=== PATIENT | male | born 1930 | race Caucasian/White ===

== ENCOUNTER 2018-06-29 14:17 | Inpatient (IN) | payer MEDICARE, OTHER ==
[2018-06-29 15:36] LABS: ABNORMAL IP MESSAGE 1; HEMATOCRIT 23.4 % (42.0-52.0); HEMOGLOBIN 7.4 g/dl (14.0-18.0); MEAN CORPUSCULAR HEMOGLOBIN 30.7 pg (29.0-33.0); MEAN CORPUSCULAR HGB CONC 31.6 g/dl (32.0-37.0); MEAN CORPUSCULAR VOLUME 97.1 fl (82.0-101.0); MEAN PLATELET VOLUME 8.9 fl (7.4-10.4); PLATELET COUNT 117 10^3/UL (140-415); POSITIVE DIFF @See below; RED BLOOD COUNT 2.41 10^6/ul (4.70-6.10); RED CELL DISTRIBUTION WIDTH 14.7 % (11.5-14.5)
[2018-06-29 15:36] LABS: WHITE BLOOD COUNT 3.2 10^3/ul (4.8-10.8)
[2018-06-29 15:45] LABS: ADD MAN DIFF? YES
[2018-06-29 15:52] LABS: PROTIME 24.1 Sec (11.9-14.9); PT RATIO 1.9
[2018-06-29 15:53] LABS: PARTIAL THROMBOPLASTIN TIME 50.4 Sec (23.0-35.0)
[2018-06-29 15:57] LABS: ALANINE AMINOTRANSFERASE 10 IU/L (13-69); ALBUMIN 4.7 g/dl (3.3-4.9); ALBUMIN/GLOBULIN RATIO 1.88; ALKALINE PHOSPHATASE 76 IU/L (42-121); ANION GAP 13 (5-13); ASPARTATE AMINO TRANSFERASE 19 IU/L (15-46); BILIRUBIN,INDIRECT 0.1 mg/dl (0-1.1); BILIRUBIN,TOTAL 0.1 mg/dl (0.2-1.3); BLOOD UREA NITROGEN 31 mg/dl (7-20); CALCIUM 9.5 mg/dl (8.4-10.2); CARBON DIOXIDE 23 mmol/L (21-31); CHLORIDE 108 mmol/L (97-110); CREATININE 1.85 mg/dl (0.61-1.24); GLUCOSE 117 mg/dl (70-220); SODIUM 144 mmol/L (135-144); TOTAL PROTEIN 7.2 g/dl (6.1-8.1)
[2018-06-29 16:03] LABS: POTASSIUM 6.7 mmol/L (3.5-5.1)
[2018-06-29 16:06] LABS: DIGOXIN 2.4 ng/ml (1.0-2.0)
[2018-06-29 16:08] LABS: B-TYPE NATRIURETIC PEPTIDE 1330 PG/ML (0-450); TROPONIN-I 0.018 ng/ml (0.000-0.120)
[2018-06-29] MEDS: CA CHLORIDE 10% 10 ML SYRINGE IV (16:23)
[2018-06-29] MEDS: PANTOPRAZOLE 40 MG INJ IV (16:23)
[2018-06-29] MEDS: DEXTROSE 50% 50 ML SYRINGE IV (16:24)
[2018-06-29] MEDS: ALBUTEROL 0.5% (NEB) 2.5 MG/0.5 ML AMP INH (16:26)
[2018-06-29] MEDS: INSULIN REGULAR, HUMAN 100 UNIT/1 ML 3ML VIAL IVP (16:34)
[2018-06-29 16:55] LABS: ANISOCYTOSIS 1+ (0-0); BAND NEUTROPHILS % (M) 2 % (0-4); EOSINOPHILS % (M) 3 % (0-7); HYPOCHROMASIA 2+ (0-0); LYMPHOCYTES #M 0.3 10^3/ul (0.8-2.9); LYMPHOCYTES % (M) 10 % (15-51); MONOCYTE #M 0.2 10^3/ul (0.3-0.9); MONOCYTES % (M) 8 % (0-11); OVALOCYTES 1+ (0-0); POIKILOCYTOSIS 1+ (0-0); POLYCHROMASIA 1+ (0-0); SCHISTOCYTES 1+ (0-0); SEG NEUT #M 2.5 10^3/ul (1.6-7.5); SEGMENTED NEUTROPHILS (M) % 77 % (39-77)
[2018-06-29 17:07] LABS: ADD UMIC YES; UR ASCORBIC ACID NEGATIVE (NEGATIVE); UR BACTERIA FEW /HPF (NONE SEEN); UR BILIRUBIN (Dip) NEGATIVE (NEGATIVE); UR BLOOD (Dip) NEGATIVE (NEGATIVE); UR CLARITY CLEAR (CLEAR); UR COLOR YELLOW (YELLOW); UR GLUCOSE (Dip) NEGATIVE (NEGATIVE); UR KETONES (Dip) NEGATIVE (NEGATIVE); UR LEUKOCYTE ESTERASE (Dip) NEGATIVE Leu/ul (NEGATIVE); UR NITRITE (Dip) NEGATIVE (NEGATIVE); UR RBC 1 /HPF (0-5); UR TOTAL PROTEIN (Dip) 1+ mg/dl (NEGATIVE); UR UROBILINOGEN (Dip) NEGATIVE (NEGATIVE); UR WBC 1 /HPF (0-5)
[2018-06-29] MEDS: IPRATROPIUM (NEB) 0.5 MG/2.5 ML AMP HHN ×2 (18:00→22:45)
[2018-06-29 20:19] LABS: HAAIG REFLEX REFLEX FILED
[2018-06-29 20:42] LABS: HEMATOCRIT 22.7 % (42.0-52.0); HEMOGLOBIN 7.2 g/dl (14.0-18.0); IRON 44 ug/dl (35-150)
[2018-06-29 20:43] LABS: LIPASE 58 U/L (23-300)
[2018-06-29 20:43] LABS: AMYLASE 61 U/L (11-123)
[2018-06-29 20:51] LABS: % IRON SATURATION 12 % SAT (22-52); TOTAL IRON BINDING CAPACITY 358 ug/dl (241-421)
[2018-06-29] MEDS: FAMOTIDINE 20 MG TAB PO (20:54)
[2018-06-29 21:01] LABS: ANION GAP 9 (5-13); BLOOD UREA NITROGEN 30 mg/dl (7-20); CALCIUM 10.3 mg/dl (8.4-10.2); CARBON DIOXIDE 23 mmol/L (21-31); CHLORIDE 110 mmol/L (97-110); CREATINE KINASE 34 IU/L (23-200); CREATININE 1.81 mg/dl (0.61-1.24); GLUCOSE 120 mg/dl (70-220); SODIUM 142 mmol/L (135-144)
[2018-06-29 21:13] LABS: CK INDEX 4.1; HEPATITIS B SURFACE ANTIGEN NEGATIVE (NEGATIVE)
[2018-06-29 21:14] LABS: POTASSIUM 6.8 mmol/L (3.5-5.1)
[2018-06-29 21:31] LABS: HEPATITIS B CORE ANTIBODY REACTIVE (NEGATIVE)
[2018-06-29 21:33] LABS: HEPATITIS C VIRAL ANTIBODY NEGATIVE (NEGATIVE)
[2018-06-29] MEDS: SOD CHLORIDE 0.9% 1,000 ML IV (22:12)
[2018-06-29 22:30] LABS: CARCINOEMBRYONIC ANTIGEN 0.4 ng/ml (0.0-5.0)
[2018-06-29] MEDS: FOLIC ACID 1 MG TAB PO (23:09)
[2018-06-29] MEDS: AMLODIPINE 5 MG TAB PO (23:09)
[2018-06-29] MEDS: FUROSEMIDE 40 MG INJ IV (23:10)
[2018-06-29] MEDS: NA BICARBONATE 8.4% 50 ML SYG IV (23:11)
[2018-06-29] MEDS: NA POLYST SULFON 15 GM/60 ML BTL PO (23:12)
[2018-06-30] MEDS: CALCIUM CARBONATE 1.25 GM TAB PO ×3 (00:08→20:24)
[2018-06-30] MEDS: RANOLAZINE (SR) 500 MG TAB PO ×3 (00:09→20:25)
[2018-06-30] MEDS: METOPROLOL (XL) 100 MG TAB PO ×2 (00:09→08:56)
[2018-06-30] MEDS: SOD CHLORIDE 0.9% 1,000 ML IV ×4 (02:41→18:29)
[2018-06-30 03:05] LABS: POTASSIUM 6.2 mmol/L (3.5-5.1)
[2018-06-30 05:08] LABS: ADD MAN DIFF? NO
[2018-06-30 05:11] LABS: WHITE BLOOD COUNT 4.1 10^3/ul (4.8-10.8)
[2018-06-30 05:11] LABS: ABNORMAL IP MESSAGE 1; BASOPHILS % 0.5 % (0.0-2.0); EOSINOPHILS % 0.7 % (0.0-7.0); HEMATOCRIT 21.9 % (42.0-52.0); LYMPHOCYTES # 0.4 10^3/ul (0.8-2.9); LYMPHOCYTES % 8.9 % (15.0-51.0); MEAN CORPUSCULAR HEMOGLOBIN 30.7 pg (29.0-33.0); MEAN CORPUSCULAR VOLUME 96.1 fl (82.0-101.0); MEAN PLATELET VOLUME 9.9 fl (7.4-10.4); MONOCYTE # 0.7 10^3/ul (0.3-0.9); MONOCYTES % 16.3 % (0.0-11.0); NEUTROPHILS % 72.9 % (39.0-77.0); PLATELET COUNT 121 10^3/UL (140-415); POSITIVE DIFF @See below; RED BLOOD COUNT 2.28 10^6/ul (4.70-6.10); RED CELL DISTRIBUTION WIDTH 14.8 % (11.5-14.5)
[2018-06-30] MEDS ORDERED: SODIUM BICARBONATE (IV ADD) 100 MEQ in DEXTROSE 5% 900 ML IV (05:30)
[2018-06-30 05:42] LABS: ANION GAP 12 (5-13); BLOOD UREA NITROGEN 29 mg/dl (7-20); CALCIUM 9.9 mg/dl (8.4-10.2); CARBON DIOXIDE 26 mmol/L (21-31); CHLORIDE 106 mmol/L (97-110); CREATININE 1.79 mg/dl (0.61-1.24); GLUCOSE 106 mg/dl (70-220); MAGNESIUM 1.4 mg/dl (1.7-2.5); SODIUM 144 mmol/L (135-144)
[2018-06-30 06:07] LABS: POTASSIUM 6.5 mmol/L (3.5-5.1)
[2018-06-30] MEDS: NA BICARBONATE 8.4% 50 ML SYG IV (06:24)
[2018-06-30] MEDS: LACTULOSE 30ML CUP PO (06:25)
[2018-06-30] MEDS: NA POLYST SULFON 15 GM/60 ML BTL PO (06:25)
[2018-06-30] MEDS: MAGNESIUM SULFATE 1 GM/D5W 100 ML IVPB (07:30)
[2018-06-30 07:53] LABS: SODIUM,URINE RANDOM 134 mmol/L (30-90)
[2018-06-30 08:10] LABS: IMMEDIATE SPIN CROSSMATCH 1 2
[2018-06-30] MEDS: AMLODIPINE 5 MG TAB PO (08:55)
[2018-06-30] MEDS: FOLIC ACID 1 MG TAB PO (08:56)
[2018-06-30] MEDS: PANTOPRAZOLE (EC) 40 MG TAB PO ×2 (08:56→18:29)
[2018-06-30] MEDS: FAMOTIDINE 20 MG TAB PO (08:56)
[2018-06-30] MEDS: IPRATROPIUM (NEB) 0.5 MG/2.5 ML AMP HHN ×2 (09:00→13:00)
[2018-06-30 09:09] LABS: ANION GAP 13 (5-13); BLOOD UREA NITROGEN 28 mg/dl (7-20); CALCIUM 9.7 mg/dl (8.4-10.2); CARBON DIOXIDE 26 mmol/L (21-31); CHLORIDE 106 mmol/L (97-110); CREATININE 1.81 mg/dl (0.61-1.24); GLUCOSE 115 mg/dl (70-220); POTASSIUM 5.8 mmol/L (3.5-5.1); SODIUM 145 mmol/L (135-144)
[2018-06-30] MEDS: LACTULOSE 30ML CUP GTB (09:10)
[2018-06-30 14:07] LABS: CREATININE,URINE RANDOM 32.99 mg/dl (20-370); PROTEIN/CREAT RATIO 0.72 RATIO
[2018-06-30 16:42] LABS: ADD MAN DIFF? NO
[2018-06-30 16:44] LABS: ABNORMAL IP MESSAGE 1; BASOPHILS % 0.2 % (0.0-2.0); EOSINOPHILS % 0.6 % (0.0-7.0); HEMATOCRIT 29.7 % (42.0-52.0); HEMOGLOBIN 9.8 g/dl (14.0-18.0); LYMPHOCYTES # 0.4 10^3/ul (0.8-2.9); LYMPHOCYTES % 8.4 % (15.0-51.0); MEAN CORPUSCULAR HEMOGLOBIN 30.7 pg (29.0-33.0); MEAN CORPUSCULAR VOLUME 93.1 fl (82.0-101.0); MEAN PLATELET VOLUME 9.4 fl (7.4-10.4); MONOCYTE # 0.7 10^3/ul (0.3-0.9); MONOCYTES % 14.8 % (0.0-11.0); NEUTROPHIL # 3.7 10^3/ul (1.6-7.5); NEUTROPHILS % 75.2 % (39.0-77.0); PLATELET COUNT 144 10^3/UL (140-415); POSITIVE DIFF @See below; RED BLOOD COUNT 3.19 10^6/ul (4.70-6.10); RED CELL DISTRIBUTION WIDTH 14.9 % (11.5-14.5)
[2018-06-30 16:44] LABS: WHITE BLOOD COUNT 4.9 10^3/ul (4.8-10.8)
[2018-06-30 17:01] LABS: ANION GAP 11 (5-13); BLOOD UREA NITROGEN 25 mg/dl (7-20); CARBON DIOXIDE 28 mmol/L (21-31); CHLORIDE 105 mmol/L (97-110); CREATININE 1.78 mg/dl (0.61-1.24); GLUCOSE 113 mg/dl (70-220); POTASSIUM 5.8 mmol/L (3.5-5.1); SODIUM 144 mmol/L (135-144)
[2018-06-30 17:19] LABS: OCCULT BLOOD STOOL NEGATIVE (NEGATIVE)
[2018-06-30 17:33] LABS: RETICULOCYTE RBC 3.14
[2018-06-30 17:33] LABS: RETICULOCYTE COUNT # 0.049 X10^6 (0.020-0.110); RETICULOCYTE COUNT % 1.6 % (0.5-1.5)
[2018-06-30 18:16] LABS: FERRITIN 66.8 ng/ml (11.1-264.0)
[2018-06-30 18:46] LABS: CARCINOEMBRYONIC ANTIGEN 0.3 ng/ml (0.0-5.0)
[2018-06-30 18:48] LABS: FOLATE > 20.0 ng/ml (2.8-20.0)
[2018-06-30 20:15] LABS: ADD MAN DIFF? NO
[2018-06-30 20:16] LABS: ABNORMAL IP MESSAGE 1; BASOPHILS % 0.4 % (0.0-2.0); EOSINOPHILS % 0.8 % (0.0-7.0); HEMOGLOBIN 9.9 g/dl (14.0-18.0); LYMPHOCYTES # 0.4 10^3/ul (0.8-2.9); LYMPHOCYTES % 7.2 % (15.0-51.0); MEAN CORPUSCULAR HEMOGLOBIN 30.8 pg (29.0-33.0); MEAN CORPUSCULAR VOLUME 93.5 fl (82.0-101.0); MEAN PLATELET VOLUME 8.7 fl (7.4-10.4); MONOCYTE # 0.8 10^3/ul (0.3-0.9); NEUTROPHIL # 3.6 10^3/ul (1.6-7.5); PLATELET COUNT 133 10^3/UL (140-415); POSITIVE DIFF @See below; RED BLOOD COUNT 3.21 10^6/ul (4.70-6.10); RED CELL DISTRIBUTION WIDTH 15.1 % (11.5-14.5)
[2018-06-30 20:16] LABS: WHITE BLOOD COUNT 4.8 10^3/ul (4.8-10.8)
[2018-06-30] MEDS: ATORVASTATIN 10 MG TAB PO (20:25)
[2018-06-30 20:34] LABS: ALANINE AMINOTRANSFERASE 11 IU/L (13-69); ALBUMIN 4.6 g/dl (3.3-4.9); ALBUMIN/GLOBULIN RATIO 1.84; ALKALINE PHOSPHATASE 86 IU/L (42-121); ANION GAP 15 (5-13); ASPARTATE AMINO TRANSFERASE 23 IU/L (15-46); BILIRUBIN,INDIRECT 0.9 mg/dl (0-1.1); BILIRUBIN,TOTAL 0.9 mg/dl (0.2-1.3); BLOOD UREA NITROGEN 24 mg/dl (7-20); CALCIUM 9.7 mg/dl (8.4-10.2); CARBON DIOXIDE 27 mmol/L (21-31); CHLORIDE 105 mmol/L (97-110); CREATININE 1.78 mg/dl (0.61-1.24); GLUCOSE 129 mg/dl (70-220); POTASSIUM 5.5 mmol/L (3.5-5.1); SODIUM 147 mmol/L (135-144); TOTAL PROTEIN 7.1 g/dl (6.1-8.1)
[2018-06-30] MEDS ORDERED: METOPROLOL (XL) 50 MG TAB PO (21:00)
[2018-07-01] MEDS: PANTOPRAZOLE (EC) 40 MG TAB PO (05:19)
[2018-07-01 06:10] LABS: ADD MAN DIFF? NO
[2018-07-01 06:19] LABS: ABNORMAL IP MESSAGE 1; BASOPHILS % 0.4 % (0.0-2.0); EOSINOPHILS % 0.9 % (0.0-7.0); HEMATOCRIT 27.9 % (42.0-52.0); LYMPHOCYTES # 0.4 10^3/ul (0.8-2.9); LYMPHOCYTES % 9.5 % (15.0-51.0); MEAN CORPUSCULAR HEMOGLOBIN 30.2 pg (29.0-33.0); MEAN CORPUSCULAR HGB CONC 32.3 g/dl (32.0-37.0); MEAN CORPUSCULAR VOLUME 93.6 fl (82.0-101.0); MEAN PLATELET VOLUME 9.5 fl (7.4-10.4); MONOCYTE # 0.9 10^3/ul (0.3-0.9); MONOCYTES % 19.9 % (0.0-11.0); NEUTROPHIL # 3.2 10^3/ul (1.6-7.5); NEUTROPHILS % 68.9 % (39.0-77.0); PLATELET COUNT 124 10^3/UL (140-415); POSITIVE DIFF @See below; RED BLOOD COUNT 2.98 10^6/ul (4.70-6.10)
[2018-07-01 06:19] LABS: WHITE BLOOD COUNT 4.6 10^3/ul (4.8-10.8)
[2018-07-01 06:41] LABS: ANION GAP 11 (5-13); BLOOD UREA NITROGEN 24 mg/dl (7-20); CALCIUM 9.5 mg/dl (8.4-10.2); CARBON DIOXIDE 30 mmol/L (21-31); CHLORIDE 105 mmol/L (97-110); CREATININE 1.76 mg/dl (0.61-1.24); GLUCOSE 94 mg/dl (70-220); MAGNESIUM 1.5 mg/dl (1.7-2.5); PHOSPHORUS 4.2 mg/dl (2.5-4.9); POTASSIUM 5.1 mmol/L (3.5-5.1); SODIUM 146 mmol/L (135-144)
[2018-07-01] MEDS: SOD CHLORIDE 0.9% 1,000 ML IV (07:00)
[2018-07-01] MEDS: RANOLAZINE (SR) 500 MG TAB PO (07:58)
[2018-07-01] MEDS: CALCIUM CARBONATE 1.25 GM TAB PO (07:58)
[2018-07-01] MEDS: FAMOTIDINE 20 MG TAB PO (07:58)
[2018-07-01] MEDS: FOLIC ACID 1 MG TAB PO (07:58)
[2018-07-01] MEDS: AMLODIPINE 5 MG TAB PO (07:59)
[2018-07-01 09:22] LABS: DIGOXIN 1.5 ng/ml (1.0-2.0)
[2018-07-01] MEDS ORDERED: DEXTROSE 5%-0.225% NACL 1,000 ML IV (11:00)
[2018-07-01] MEDS: MAGNESIUM SULFATE 2 GM/50 ML 50 ML IVPB (11:04)
== END 2018-07-01 15:31 | disposition home health service (06) | DRG 683 ==
LOC: E/R 14:17 → 6WM 06-30 19:46 → ICU 19:45
PROVIDERS: Family Medicine
PROC: 30233N1 Transfusion of Nonautologous Red Blood Cells into Peripheral Vein, Percutaneous Approach (ICD-10-PCS; principal; 2018-06-30)
DX: N17.9 Acute kidney failure, unspecified (principal); K92.1 Melena; D68.9 Coagulation defect, unspecified; I48.91 Unspecified atrial fibrillation; I25.10 Atherosclerotic heart disease of native coronary artery without angina pectoris; I12.9 Hypertensive chronic kidney disease with stage 1 through stage 4 chronic kidney disease, or unspecified chronic kidney disease; N18.9 Chronic kidney disease, unspecified; R14.0 Abdominal distension (gaseous); M81.0 Age-related osteoporosis without current pathological fracture; M15.9 Polyosteoarthritis, unspecified; N40.0 Benign prostatic hyperplasia without lower urinary tract symptoms; E78.00 Pure hypercholesterolemia, unspecified; J44.9 Chronic obstructive pulmonary disease, unspecified; H91.90 Unspecified hearing loss, unspecified ear; D63.1 Anemia in chronic kidney disease; R33.9 Retention of urine, unspecified; E11.22 Type 2 diabetes mellitus with diabetic chronic kidney disease; K80.80 Other cholelithiasis without obstruction; N28.1 Cyst of kidney, acquired; Z79.01 Long term (current) use of anticoagulants; T46.0X5A Adverse effect of cardiac-stimulant glycosides and drugs of similar action, initial encounter; T50.0X5A Adverse effect of mineralocorticoids and their antagonists, initial encounter; E83.42 Hypomagnesemia; D50.0 Iron deficiency anemia secondary to blood loss (chronic); I51.7 Cardiomegaly
CPT/HCPCS: 36415; 36430; 71045; 76700; 80048; 80053; 80162; 81001; 81003; 82150; 82270; 82378; 82550; 82553; 82570; 82607; 82728; 82746; 82962; 83540; 83690; 83735; 83880; 84100; 84132; 84300; 84443; 84484; 85014; 85018; 85025; 85045; 85610; 85730; 86704; 86709; 86803; 86850; 86860; 86870; 86880; 86900; 86901; 86902; 86906; 86920; 86970; 86971; 87081; 87340; 93005; 93306; 94664; 96374; 96375; 99291-25

== ENCOUNTER 2018-07-06 21:14 | Emergency (ER) | payer MEDICARE, OTHER ==
[2018-07-06] MEDS: OXYMETAZOLINE 0.05% 15 ML NAS SPRAY NASAL (21:54)
[2018-07-06] MEDS: SILVER NITRATE SWAB TOP (22:47)
== END 2018-07-06 23:02 | disposition home or self-care (01) ==
LOC: E/R 23:02
DX: R04.0 Epistaxis (principal); I10 Essential (primary) hypertension; I25.10 Atherosclerotic heart disease of native coronary artery without angina pectoris; Z79.01 Long term (current) use of anticoagulants
CPT/HCPCS: 99282

== ENCOUNTER 2018-08-27 15:42 | Inpatient (IN) | payer MEDICARE, OTHER ==
[~2018-08-27 15:42] MED LIST: NORepinephrine 8MG/250 ML BAG; PROPOFOL 200 MG INJ
[2018-08-27 16:13] LABS: ABNORMAL IP MESSAGE 1; HEMATOCRIT 23.4 % (42.0-52.0); HEMOGLOBIN 7.1 g/dl (14.0-18.0); MEAN CORPUSCULAR HEMOGLOBIN 30.7 pg (29.0-33.0); MEAN CORPUSCULAR HGB CONC 30.3 g/dl (32.0-37.0); MEAN CORPUSCULAR VOLUME 101.3 fl (82.0-101.0); NUCLEATED RED BLOOD CELLS% 0.1 /100WBC (0.0-0.0); PLATELET COUNT 153 10^3/UL (140-415); POSITIVE DIFF @See below; RED BLOOD COUNT 2.31 10^6/ul (4.70-6.10); RED CELL DISTRIBUTION WIDTH 14.7 % (11.5-14.5)
[2018-08-27 16:13] LABS: WHITE BLOOD COUNT 13.4 10^3/ul (4.8-10.8)
[2018-08-27 16:14] LABS: ADD MAN DIFF? YES
[2018-08-27] MEDS: NORepinephrine 8MG/250 ML (PMX 250 ML IV ×2 (16:24→23:57)
[2018-08-27] MEDS: SOD CHLORIDE 0.9% 1,000 ML IV (16:25)
[2018-08-27] MEDS: SODIUM CHLORIDE 0.9% 500 ML BAG IV* (16:25)
[2018-08-27 16:33] LABS: INR 1.49; PROTIME 18.1 Sec (11.9-14.9); PT RATIO 1.4
[2018-08-27 16:34] LABS: ALANINE AMINOTRANSFERASE 16 IU/L (13-69); ALBUMIN 3.3 g/dl (3.3-4.9); ALBUMIN/GLOBULIN RATIO 1.43; ALKALINE PHOSPHATASE 91 IU/L (42-121); ANION GAP 12 (5-13); ASPARTATE AMINO TRANSFERASE 30 IU/L (15-46); BLOOD UREA NITROGEN 31 mg/dl (7-20); CALCIUM 7.9 mg/dl (8.4-10.2); CARBON DIOXIDE 18 mmol/L (21-31); CHLORIDE 108 mmol/L (97-110); CREATININE 1.98 mg/dl (0.61-1.24); GLUCOSE 231 mg/dl (70-220); PARTIAL THROMBOPLASTIN TIME 38.8 Sec (23.0-35.0); SODIUM 138 mmol/L (135-144); TOTAL PROTEIN 5.6 g/dl (6.1-8.1)
[2018-08-27 16:35] LABS: MAGNESIUM 1.9 mg/dl (1.7-2.5)
[2018-08-27 16:35] LABS: PHOSPHORUS 5.8 mg/dl (2.5-4.9)
[2018-08-27 16:37] LABS: AADO2 Arterial 274.4 mmHg (7.0-24.0); Arterial Blood Gas Oxygen Sat 94.5 mmHG (95.0-100.0); Arterial COHb 0.5 % (0.0-3.0); Arterial Fraction of Oxyhgb 93.6 % (93.0-99.0); Arterial HCO3 15.5 mmol/L (22.0-26.0); Arterial MetHb 0.5 % (0.0-1.5); Arterial pCO2 49.4 mmhg (35-45); MODE VENT - AC; Site Right Brachial
[2018-08-27 16:40] LABS: ANISOCYTOSIS 2+ (0-0); BAND NEUTROPHILS #M 3.2 10^3/ul (0.0-0.6); BAND NEUTROPHILS % (M) 24 % (0-4); BASOPHIL #M 0.1 10^3/ul (0.0-0.0); BASOPHILS % (M) 1 % (0-2); BURR CELLS 2+ (0-0); EOSINOPHILS % (M) 1 % (0-7); GIANT THROMBO% (M) 1 % (0-0); LYMPHOCYTES #M 2.1 10^3/ul (0.8-2.9); LYMPHOCYTES % (M) 16 % (15-51); METAMYELOCYTES #M 0.2 10^3/ul (0.0-0.0); METAMYELOCYTES %M 2 % (0-0); MICROCYTOSIS 2+ (0-0); MONOCYTE #M 1.8 10^3/ul (0.3-0.9); MONOCYTES % (M) 14 % (0-11); OVALOCYTES 1+ (0-0); PLATELET ESTIMATE NORMAL; POIKILOCYTOSIS 2+ (0-0); POLYCHROMASIA 1+ (0-0); REACTIVE LYMPHOCYTES #M 0.1 10^3/ul (0.0-0.0); REACTIVE LYMPHOCYTES% (M) 1 % (0-0); SEG NEUT #M 5.9 10^3/ul (1.6-7.5); SEGMENTED NEUTROPHILS (M) % 41 % (39-77); SMUDGE%M 4 % (0-0)
[2018-08-27 16:46] LABS: B-TYPE NATRIURETIC PEPTIDE 2340 PG/ML (0-450); TROPONIN-I 0.024 ng/ml (0.000-0.120)
[2018-08-27] MEDS: PROPOFOL 100 ML IV ×2 (16:48→23:57)
[2018-08-27 16:54] LABS: ADD UMIC YES; UR AMORPHOUS CRYSTAL MODERATE /HPF (NONE SEEN); UR ASCORBIC ACID NEGATIVE (NEGATIVE); UR BACTERIA FEW /HPF (NONE SEEN); UR BILIRUBIN (Dip) NEGATIVE (NEGATIVE); UR BLOOD (Dip) 1+ mg/dL (NEGATIVE); UR CLARITY SLIGHTLY CLOUDY (CLEAR); UR COLOR AMBER (YELLOW); UR GLUCOSE (Dip) NEGATIVE (NEGATIVE); UR KETONES (Dip) NEGATIVE (NEGATIVE); UR LEUKOCYTE ESTERASE (Dip) TRACE Leu/ul (NEGATIVE); UR MUCUS FEW /HPF (NONE SEEN); UR NITRITE (Dip) NEGATIVE (NEGATIVE); UR RBC 16 /HPF (0-5); UR SPECIFIC GRAVITY (Dip) 1.016 (1.003-1.030); UR TOTAL PROTEIN (Dip) 2+ mg/dl (NEGATIVE); UR UROBILINOGEN (Dip) NEGATIVE (NEGATIVE); UR WBC 7 /HPF (0-5)
[2018-08-27] MEDS ORDERED: ONDANSETRON 4 MG INJ IV (19:30)
[2018-08-27] MEDS: ACETAMINOPHEN 325 MG TAB PO ×2 (19:30→19:54)
[2018-08-27] MEDS: CEFEPIME 2GM/50 ML (PMX) 50 ML IVPB (19:31)
[2018-08-27] MEDS: FAMOTIDINE 20 MG INJ IV (19:31)
[2018-08-27] MEDS: VANCOMYCIN 1 GM (PMX) 250 ML IVPB (19:53)
[2018-08-27] MEDS: SODIUM CHLORIDE 0.9% 1L BAG IV* (19:54)
[2018-08-27] MEDS: MAGNESIUM SULFATE 2 GM/50 ML 50 ML IVPB (20:31)
[2018-08-27] MEDS: SOD CHLORIDE 0.9% 100 ML (20:51)
[2018-08-27] MEDS: IODIXANOL LOCM 100 ML BTL (20:51)
[2018-08-27] MEDS: ACETAMINOPHEN 650MG/20.3ML CUP PO (20:52)
[2018-08-27 21:13] LABS: LIPASE 45 U/L (23-300)
[2018-08-27 21:13] LABS: AMYLASE 67 U/L (11-123)
[2018-08-27] MEDS: ACCU-CHEK XX ×2 (21:30→22:30)
[2018-08-27] MEDS ORDERED: DEXTROSE 50% 50 ML SYRINGE IV ×2 (21:30)
[2018-08-27 21:55] LABS: D-DIMER 6243.68 ng/ml (<460)
[2018-08-27] MEDS ORDERED: LORAZEPAM 2 MG INJ (22:03)
[2018-08-27] MEDS: LORAZEPAM 2 MG INJ IV (22:15)
[2018-08-27 22:16] LABS: MAGNESIUM 2.3 mg/dl (1.7-2.5)
[2018-08-27 22:20] LABS: CREATINE KINASE 122 IU/L (23-200); IRON 14 ug/dl (35-150)
[2018-08-27 22:23] LABS: LACTIC ACID 2.6 mmol/L (0.5-2.0)
[2018-08-27 22:25] LABS: DIGOXIN 1.8 ng/ml (1.0-2.0)
[2018-08-27 22:27] LABS: AADO2 Arterial 289.7 mmHg (7.0-24.0); Arterial Blood Gas Oxygen Sat 94.1 mmHG (95.0-100.0); Arterial COHb 0.1 % (0.0-3.0); Arterial Fraction of Oxyhgb 93.6 % (93.0-99.0); Arterial HCO3 15.5 mmol/L (22.0-26.0); Arterial MetHb 0.4 % (0.0-1.5); Arterial pCO2 42.9 mmhg (35-45); MODE VENT - AC; Site Right Radial
[2018-08-27 22:30] LABS: % IRON SATURATION 5 % SAT (22-52); TOTAL IRON BINDING CAPACITY 261 ug/dl (241-421)
[2018-08-27 22:34] LABS: CK INDEX 5.3
[2018-08-27 22:41] LABS: CK-MB 6.44 ng/ml (0.0-2.4); TROPONIN-I 0.188 ng/ml (0.000-0.120)
[2018-08-27 22:48] LABS: AMMONIA 21 umol/l (9-30)
[2018-08-27] MEDS: PANTOPRAZOLE 40 MG INJ IV (23:05)
[2018-08-27] MEDS: NA BICARBONATE 8.4% 50 ML SYG IV (23:05)
[2018-08-27] MEDS: BUSPIRONE 5 MG TAB PO (23:05)
[2018-08-27] MEDS: DEXTROSE 5%-0.9% NACL 1,000 ML IV (23:07)
[2018-08-27] MEDS: SOD CHLORIDE 0.9% 250 ML IV (23:07)
[2018-08-27 23:27] LABS: INR 1.54; PROTIME 18.6 Sec (11.9-14.9); PT RATIO 1.5
[2018-08-27 23:28] LABS: PARTIAL THROMBOPLASTIN TIME 40.1 Sec (23.0-35.0)
[2018-08-27 23:29] LABS: ALANINE AMINOTRANSFERASE 23 IU/L (13-69); ALBUMIN 3.1 g/dl (3.3-4.9); ALBUMIN/GLOBULIN RATIO 1.24; ALKALINE PHOSPHATASE 79 IU/L (42-121); AMYLASE 42 U/L (11-123); ANION GAP 16 (5-13); ASPARTATE AMINO TRANSFERASE 29 IU/L (15-46); BILIRUBIN,INDIRECT 0.1 mg/dl (0-1.1); BILIRUBIN,TOTAL 0.1 mg/dl (0.2-1.3); BLOOD UREA NITROGEN 35 mg/dl (7-20); CALCIUM 7.4 mg/dl (8.4-10.2); CARBON DIOXIDE 17 mmol/L (21-31); CHLORIDE 106 mmol/L (97-110); CREATINE KINASE 138 IU/L (23-200); GLUCOSE 142 mg/dl (70-220); LIPASE 35 U/L (23-300); MAGNESIUM 2.1 mg/dl (1.7-2.5); PHOSPHORUS 3.3 mg/dl (2.5-4.9); POTASSIUM 4.6 mmol/L (3.5-5.1); SODIUM 139 mmol/L (135-144); TOTAL PROTEIN 5.6 g/dl (6.1-8.1)
[2018-08-27 23:33] LABS: LACTIC ACID 2.6 mmol/L (0.5-2.0)
[2018-08-27 23:40] LABS: CK INDEX 4.6
[2018-08-27 23:45] LABS: CK-MB 6.33 ng/ml (0.0-2.4)
[2018-08-27] MEDS: MIDAZOLAM (DRIP) 50 mg/50 mL 50 ML IV (23:47)
[2018-08-27] MEDS: VECURONIUM 100 MG in DEXTROSE 5% 100 ML IV (23:47)
[2018-08-27] MEDS: FENTAnyl (DRIP) 1000 mcg/100mL 100 ML IV (23:49)
[2018-08-27] MEDS: INSULIN HUMAN REGULAR 100 UNIT in SOD CHLORIDE 0.9% 99 ML IV (23:55)
[2018-08-27] MEDS: LEVETIRACETAM 500 MG TAB PO (23:58)
[2018-08-28 00:23] LABS: D-DIMER 5124.55 ng/ml (<460)
[2018-08-28 00:30] LABS: ABNORMAL IP MESSAGE 1; HEMOGLOBIN 7.4 g/dl (14.0-18.0); MEAN CORPUSCULAR HEMOGLOBIN 31.4 pg (29.0-33.0); MEAN CORPUSCULAR HGB CONC 30.8 g/dl (32.0-37.0); MEAN CORPUSCULAR VOLUME 101.7 fl (82.0-101.0); MEAN PLATELET VOLUME 10.3 fl (7.4-10.4); PLATELET COUNT 164 10^3/UL (140-415); POSITIVE DIFF @See below; RED BLOOD COUNT 2.36 10^6/ul (4.70-6.10); RED CELL DISTRIBUTION WIDTH 14.6 % (11.5-14.5)
[2018-08-28 00:30] LABS: WHITE BLOOD COUNT 14.8 10^3/ul (4.8-10.8)
[2018-08-28] MEDS: ACCU-CHEK XX ×16 (01:00→23:09)
[2018-08-28] MEDS ORDERED: VANCOMYCIN 1 GM (PMX) 250 ML IVPB (01:00)
[2018-08-28] MEDS: PIPER-TAZO 2.25 GM/NS 50 ML IVPB ×2 (02:13→05:47)
[2018-08-28 02:31] LABS: ADD MAN DIFF? YES
[2018-08-28 03:01] LABS: ANISOCYTOSIS 1+ (0-0); BAND NEUTROPHILS #M 4.2 10^3/ul (0.0-0.6); BAND NEUTROPHILS % (M) 29 % (0-4); LYMPHOCYTES #M 0.2 10^3/ul (0.8-2.9); LYMPHOCYTES % (M) 2 % (15-51); METAMYELOCYTES #M 0.4 10^3/ul (0.0-0.0); METAMYELOCYTES %M 3 % (0-0); MONOCYTE #M 1.7 10^3/ul (0.3-0.9); MONOCYTES % (M) 12 % (0-11); MYELOCYTES #M 0.4 10^3/ul (0.0-0.0); MYELOCYTES % (M) 3 % (0-0); PLATELET ESTIMATE NORMAL; POIKILOCYTOSIS 2+ (0-0); PROMYELOCYTES #M 0.2 10^3/ul (0-0); PROMYELOCYTES % (M) 2 % (0-0); SEG NEUT #M 7.9 10^3/ul (1.6-7.5); SEGMENTED NEUTROPHILS (M) % 49 % (39-77)
[2018-08-28] MEDS: ACETAMINOPHEN 650MG/20.3ML CUP PO ×3 (03:30→19:08)
[2018-08-28 04:11] LABS: WHITE BLOOD COUNT 12.1 10^3/ul (4.8-10.8)
[2018-08-28 04:11] LABS: ABNORMAL IP MESSAGE 1; HEMATOCRIT 23.2 % (42.0-52.0); HEMOGLOBIN 7.4 g/dl (14.0-18.0); MEAN CORPUSCULAR HEMOGLOBIN 31.1 pg (29.0-33.0); MEAN CORPUSCULAR HGB CONC 31.9 g/dl (32.0-37.0); MEAN CORPUSCULAR VOLUME 97.5 fl (82.0-101.0); MEAN PLATELET VOLUME 9.4 fl (7.4-10.4); PLATELET COUNT 142 10^3/UL (140-415); POSITIVE DIFF @See below; RED BLOOD COUNT 2.38 10^6/ul (4.70-6.10); RED CELL DISTRIBUTION WIDTH 14.5 % (11.5-14.5)
[2018-08-28 04:22] LABS: AADO2 Arterial 311.8 mmHg (7.0-24.0); Allen Test ACCEPTAB; Arterial Base Excess -9.9 mmol/L (-3.0-3); Arterial Blood Gas Oxygen Sat 96.7 mmHG (95.0-100.0); Arterial COHb 0.1 % (0.0-3.0); Arterial Fraction of Oxyhgb 96.3 % (93.0-99.0); Arterial HCO3 16.6 mmol/L (22.0-26.0); Arterial MetHb 0.3 % (0.0-1.5); Arterial pCO2 32.5 mmhg (35-45); MODE VENT - VC+; Site Right Radial
[2018-08-28] MEDS ORDERED: OCULAR LUBRICANT 3.5 GM OPH OINT BOTH EYES (04:30)
[2018-08-28 04:37] LABS: ADD MAN DIFF? YES
[2018-08-28 04:54] LABS: CREATINE KINASE 138 IU/L (23-200)
[2018-08-28 04:55] LABS: ANION GAP 14 (5-13); BLOOD UREA NITROGEN 37 mg/dl (7-20); CALCIUM 7.4 mg/dl (8.4-10.2); CARBON DIOXIDE 19 mmol/L (21-31); CHLORIDE 108 mmol/L (97-110); CREATININE 2.33 mg/dl (0.61-1.24); GLUCOSE 139 mg/dl (70-220); POTASSIUM 4.3 mmol/L (3.5-5.1); SODIUM 141 mmol/L (135-144)
[2018-08-28 04:55] LABS: PHOSPHORUS 2.5 mg/dl (2.5-4.9)
[2018-08-28 05:06] LABS: CK INDEX 5.6
[2018-08-28 05:08] LABS: CK-MB 7.68 ng/ml (0.0-2.4)
[2018-08-28 05:29] LABS: TROPONIN-I 0.225 ng/ml (0.000-0.120)
[2018-08-28 05:36] LABS: ANISOCYTOSIS 1+ (0-0); BAND NEUTROPHILS #M 3.6 10^3/ul (0.0-0.6); BAND NEUTROPHILS % (M) 30 % (0-4); ERYTHROBLAST% (NRBC) (M) 1 % (0-0); GIANT THROMBO% (M) 4 % (0-0); LYMPHOCYTES #M 0.6 10^3/ul (0.8-2.9); LYMPHOCYTES % (M) 5 % (15-51); METAMYELOCYTES #M 0.3 10^3/ul (0.0-0.0); METAMYELOCYTES %M 3 % (0-0); MONOCYTE #M 1.3 10^3/ul (0.3-0.9); MONOCYTES % (M) 11 % (0-11); MYELOCYTES #M 0.1 10^3/ul (0.0-0.0); MYELOCYTES % (M) 1 % (0-0); PLATELET ESTIMATE NORMAL; POIKILOCYTOSIS 2+ (0-0); PROMYELOCYTES #M 0.1 10^3/ul (0-0); PROMYELOCYTES % (M) 1 % (0-0); SEG NEUT #M 6.4 10^3/ul (1.6-7.5); SEGMENTED NEUTROPHILS (M) % 49 % (39-77); SMUDGE%M 63 % (0-0)
[2018-08-28] MEDS: NA BICARBONATE 8.4% 50 ML SYG IV ×3 (05:46→17:42)
[2018-08-28] MEDS: METHYLPREDNISOLONE 125 MG INJ IV (05:47)
[2018-08-28] MEDS: BUSPIRONE 5 MG TAB PO (05:47)
[2018-08-28] MEDS: OCULAR LUBRICANT 3.5 GM OPH OINT BOTH EYES ×3 (05:47→17:11)
[2018-08-28] MEDS: ARTIFICIAL TEARS 15 ML OPH BOTH EYES ×3 (05:47→17:11)
[2018-08-28] MEDS: MIDAZOLAM (DRIP) 50 mg/50 mL 50 ML IV ×2 (05:58→12:38)
[2018-08-28] MEDS ORDERED: PIPER-TAZO 3.375 GM IV (PMX) 100 ML IVPB (06:00)
[2018-08-28] MEDS: NORepinephrine 8MG/250 ML (PMX 250 ML IV ×3 (06:28→18:12)
[2018-08-28] MEDS: LEVETIRACETAM 500 MG TAB PO (08:32)
[2018-08-28] MEDS: ENOXAPARIN 40 MG/0.4 ML SYG SC (08:43)
[2018-08-28] MEDS ORDERED: MEPERIDINE 25 MG INJ IV ×2 (09:00→09:30)
[2018-08-28] MEDS: IPRATROPIUM (HFA) 12.9 GM INHALER INH ×3 (09:08→19:58)
[2018-08-28] MEDS: LORAZEPAM 2 MG INJ IV (09:38)
[2018-08-28 10:16] LABS: AADO2 Arterial 263.8 mmHg (7.0-24.0); Allen Test ACCEPTAB; Arterial Base Excess -9.3 mmol/L (-3.0-3); Arterial Blood Gas Oxygen Sat 98.1 mmHG (95.0-100.0); Arterial COHb 0.3 % (0.0-3.0); Arterial Fraction of Oxyhgb 97.4 % (93.0-99.0); Arterial HCO3 16.8 mmol/L (22.0-26.0); Arterial MetHb 0.4 % (0.0-1.5); Arterial pCO2 31.3 mmhg (35-45); MODE VENT - AC; Site Right Radial; Temperature 33.1 C
[2018-08-28] MEDS: PROPOFOL 100 ML IV ×4 (10:20→21:27)
[2018-08-28] MEDS: DEXTROSE 5%-0.9% NACL 1,000 ML IV ×2 (10:21→12:16)
[2018-08-28 10:32] LABS: ADD MAN DIFF? NO
[2018-08-28 10:36] LABS: ABNORMAL IP MESSAGE 1; BASOPHILS % 0.2 % (0.0-2.0); HEMATOCRIT 23.7 % (42.0-52.0); HEMOGLOBIN 7.5 g/dl (14.0-18.0); LYMPHOCYTES # 0.2 10^3/ul (0.8-2.9); LYMPHOCYTES % 1.6 % (15.0-51.0); MEAN CORPUSCULAR HGB CONC 31.6 g/dl (32.0-37.0); MEAN CORPUSCULAR VOLUME 97.9 fl (82.0-101.0); MEAN PLATELET VOLUME 9.7 fl (7.4-10.4); MONOCYTE # 1.5 10^3/ul (0.3-0.9); MONOCYTES % 11.4 % (0.0-11.0); NEUTROPHIL # 11.5 10^3/ul (1.6-7.5); PLATELET COUNT 153 10^3/UL (140-415); POSITIVE DIFF @See below; RED BLOOD COUNT 2.42 10^6/ul (4.70-6.10); RED CELL DISTRIBUTION WIDTH 14.6 % (11.5-14.5); RETICULOCYTE COUNT # 0.052 X10^6 (0.020-0.110); RETICULOCYTE COUNT % 2.1 % (0.5-1.5); RETICULOCYTE RBC 2.42
[2018-08-28 10:36] LABS: WHITE BLOOD COUNT 13.5 10^3/ul (4.8-10.8)
[2018-08-28 10:55] LABS: INR 1.68; PROTIME 19.9 Sec (11.9-14.9); PT RATIO 1.6
[2018-08-28 10:56] LABS: PARTIAL THROMBOPLASTIN TIME 57.1 Sec (23.0-35.0)
[2018-08-28 10:58] LABS: ALANINE AMINOTRANSFERASE 20 IU/L (13-69); ALKALINE PHOSPHATASE 77 IU/L (42-121); ANION GAP 10 (5-13); ASPARTATE AMINO TRANSFERASE 36 IU/L (15-46); BILIRUBIN,INDIRECT 0.3 mg/dl (0-1.1); BILIRUBIN,TOTAL 0.3 mg/dl (0.2-1.3); BLOOD UREA NITROGEN 40 mg/dl (7-20); CALCIUM 7.3 mg/dl (8.4-10.2); CARBON DIOXIDE 19 mmol/L (21-31); CHLORIDE 111 mmol/L (97-110); CREATININE 2.47 mg/dl (0.61-1.24); GLUCOSE 127 mg/dl (70-220); POTASSIUM 4.5 mmol/L (3.5-5.1); SODIUM 140 mmol/L (135-144); TOTAL PROTEIN 5.3 g/dl (6.1-8.1)
[2018-08-28 10:59] LABS: LACTIC ACID 3.6 mmol/L (0.5-2.0)
[2018-08-28 11:25] LABS: PHOSPHORUS 3.6 mg/dl (2.5-4.9)
[2018-08-28 11:25] LABS: ANISOCYTOSIS 1+ (0-0); BAND NEUTROPHILS #M 5.1 10^3/ul (0.0-0.6); BAND NEUTROPHILS % (M) 38 % (0-4); BURR CELLS 1+ (0-0); ECHINOCYTOSIS 1+ (0-0); GIANT THROMBO% (M) 1 % (0-0); LIPASE 38 U/L (23-300); LYMPHOCYTES #M 0.9 10^3/ul (0.8-2.9); LYMPHOCYTES % (M) 7 % (15-51); MAGNESIUM 1.9 mg/dl (1.7-2.5); METAMYELOCYTES #M 0.6 10^3/ul (0.0-0.0); METAMYELOCYTES %M 5 % (0-0); MICROCYTOSIS 1+ (0-0); MONOCYTE #M 2.2 10^3/ul (0.3-0.9); MONOCYTES % (M) 17 % (0-11); MYELOCYTES #M 0.1 10^3/ul (0.0-0.0); MYELOCYTES % (M) 1 % (0-0); OVALOCYTES 1+ (0-0); PLATELET ESTIMATE NORMAL; POIKILOCYTOSIS 2+ (0-0); SEGMENTED NEUTROPHILS (M) % 32 % (39-77); SMUDGE%M 7 % (0-0)
[2018-08-28 11:27] LABS: AMYLASE < 30 U/L (11-123)
[2018-08-28] MEDS ORDERED: VECURONIUM 100 MG in DEXTROSE 5% 100 ML IV (11:30)
[2018-08-28 11:33] LABS: URIC ACID 7.7 mg/dl (3.1-7.9)
[2018-08-28 11:33] LABS: LACTATE DEHYDROGENASE 647 IU/L (313-618)
[2018-08-28 11:46] LABS: TROPONIN-I 0.181 ng/ml (0.000-0.120)
[2018-08-28] MEDS: PIPER-TAZO 2.25 GM (PMX) 50 ML IVPB ×2 (12:23→17:11)
[2018-08-28] MEDS: MAGNESIUM SULFATE 2 GM/50 ML 50 ML IVPB (12:24)
[2018-08-28 12:41] LABS: FOLATE > 20.0 ng/ml (2.8-20.0)
[2018-08-28] MEDS: FUROSEMIDE 20 MG INJ IV (12:41)
[2018-08-28] MEDS: ASPIRIN 325 MG TAB PO (12:41)
[2018-08-28] MEDS ORDERED: LORAZEPAM 2 MG INJ IV (14:00)
[2018-08-28 15:22] LABS: CREATININE,URINE RANDOM 72.71 mg/dl (20-370)
[2018-08-28 15:22] LABS: SODIUM,URINE RANDOM 80 mmol/L (30-90)
[2018-08-28 15:30] LABS: CREATININE,URINE RANDOM 71.98 mg/dl (20-370)
[2018-08-28 15:38] LABS: PROTEIN/CREAT RATIO 4.76 RATIO
[2018-08-28 15:55] LABS: ADD MAN DIFF? NO
[2018-08-28 15:56] LABS: WHITE BLOOD COUNT 14.3 10^3/ul (4.8-10.8)
[2018-08-28 15:56] LABS: ABNORMAL IP MESSAGE 1; BASOPHILS % 0.3 % (0.0-2.0); EOSINOPHILS % 0.1 % (0.0-7.0); HEMATOCRIT 23.4 % (42.0-52.0); HEMOGLOBIN 7.6 g/dl (14.0-18.0); LYMPHOCYTES # 0.3 10^3/ul (0.8-2.9); LYMPHOCYTES % 1.8 % (15.0-51.0); MEAN CORPUSCULAR HEMOGLOBIN 31.4 pg (29.0-33.0); MEAN CORPUSCULAR HGB CONC 32.5 g/dl (32.0-37.0); MEAN CORPUSCULAR VOLUME 96.7 fl (82.0-101.0); MEAN PLATELET VOLUME 9.7 fl (7.4-10.4); MONOCYTE # 1.6 10^3/ul (0.3-0.9); MONOCYTES % 11.2 % (0.0-11.0); NEUTROPHIL # 11.9 10^3/ul (1.6-7.5); NEUTROPHILS % 83.7 % (39.0-77.0); PLATELET COUNT 157 10^3/UL (140-415); POSITIVE DIFF @See below; RED BLOOD COUNT 2.42 10^6/ul (4.70-6.10); RED CELL DISTRIBUTION WIDTH 14.8 % (11.5-14.5)
[2018-08-28 16:15] LABS: ANION GAP 11 (5-13); BLOOD UREA NITROGEN 42 mg/dl (7-20); CALCIUM 7.1 mg/dl (8.4-10.2); CARBON DIOXIDE 17 mmol/L (21-31); CHLORIDE 111 mmol/L (97-110); CREATININE 2.58 mg/dl (0.61-1.24); GLUCOSE 118 mg/dl (70-220); MAGNESIUM 2.9 mg/dl (1.7-2.5); POTASSIUM 4.8 mmol/L (3.5-5.1); SODIUM 139 mmol/L (135-144)
[2018-08-28 16:15] LABS: LACTIC ACID 3.5 mmol/L (0.5-2.0)
[2018-08-28 16:19] LABS: AADO2 Arterial 137.6 mmHg (7.0-24.0); Allen Test ACCEPTAB; Arterial Base Excess -12.2 mmol/L (-3.0-3); Arterial Blood Gas Oxygen Sat 97.9 mmHG (95.0-100.0); Arterial COHb 0.3 % (0.0-3.0); Arterial Fraction of Oxyhgb 97.6 % (93.0-99.0); Arterial HCO3 14.6 mmol/L (22.0-26.0); Arterial MetHb 0 % (0.0-1.5); Arterial pCO2 30.4 mmhg (35-45); MODE VENT - AC; Site Right Radial; Temperature 32.9 C
[2018-08-28 16:35] LABS: TROPONIN-I 0.123 ng/ml (0.000-0.120)
[2018-08-28 16:36] LABS: ANISOCYTOSIS 1+ (0-0); BAND NEUTROPHILS #M 5.1 10^3/ul (0.0-0.6); BAND NEUTROPHILS % (M) 36 % (0-4); BASOPHIL #M 0.1 10^3/ul (0.0-0.0); BASOPHILS % (M) 1 % (0-2); BURR CELLS 2+ (0-0); GIANT THROMBO% (M) 1 % (0-0); LYMPHOCYTES #M 0.7 10^3/ul (0.8-2.9); LYMPHOCYTES % (M) 5 % (15-51); METAMYELOCYTES #M 0.1 10^3/ul (0.0-0.0); METAMYELOCYTES %M 1 % (0-0); MICROCYTOSIS 1+ (0-0); MONOCYTE #M 0.8 10^3/ul (0.3-0.9); MONOCYTES % (M) 6 % (0-11); MYELOCYTES #M 0.4 10^3/ul (0.0-0.0); MYELOCYTES % (M) 3 % (0-0); OVALOCYTES 1+ (0-0); PLATELET ESTIMATE NORMAL; POIKILOCYTOSIS 3+ (0-0); SEG NEUT #M 7.6 10^3/ul (1.6-7.5); SEGMENTED NEUTROPHILS (M) % 48 % (39-77); SMUDGE%M 10 % (0-0)
[2018-08-28] MEDS: FENTAnyl (DRIP) 1000 mcg/100mL 100 ML IV (17:12)
[2018-08-28] MEDS: SODIUM BICARBONATE (IV ADD) 150 MEQ in DEXTROSE 5% 1,000 ML IV (19:02)
[2018-08-28] MEDS: VECURONIUM 100 MG in DEXTROSE 5% 100 ML IV (20:30)
[2018-08-28] MEDS: LEVETIRACETAM 500 MG (PMX) 100 ML IVPB (20:54)
[2018-08-28] MEDS ORDERED: LEVETIRACETAM IV 500 MG in DEXTROSE 5% 100 ML IVPB (21:00)
[2018-08-28] MEDS: SOD CHLORIDE 0.9% 250 ML IV* (21:43)
[2018-08-28 22:16] LABS: AADO2 Arterial 153.7 mmHg (7.0-24.0); Allen Test ACCEPTAB; Arterial Blood Gas Oxygen Sat 97.6 mmHG (95.0-100.0); Arterial COHb 0.3 % (0.0-3.0); Arterial HCO3 17.6 mmol/L (22.0-26.0); Arterial MetHb 0.3 % (0.0-1.5); Arterial pCO2 27.2 mmhg (35-45); MODE VENT - AC; Site Right Radial; Temperature 33.4 C
[2018-08-28 22:34] LABS: ADD MAN DIFF? NO
[2018-08-28 22:39] LABS: WHITE BLOOD COUNT 13.5 10^3/ul (4.8-10.8)
[2018-08-28 22:39] LABS: ABNORMAL IP MESSAGE 1; BASOPHILS % 0.2 % (0.0-2.0); EOSINOPHILS % 0.1 % (0.0-7.0); HEMATOCRIT 21.7 % (42.0-52.0); HEMOGLOBIN 7.4 g/dl (14.0-18.0); LYMPHOCYTES # 0.3 10^3/ul (0.8-2.9); LYMPHOCYTES % 1.9 % (15.0-51.0); MEAN CORPUSCULAR HEMOGLOBIN 32.2 pg (29.0-33.0); MEAN CORPUSCULAR HGB CONC 34.1 g/dl (32.0-37.0); MEAN CORPUSCULAR VOLUME 94.3 fl (82.0-101.0); MEAN PLATELET VOLUME 9.5 fl (7.4-10.4); MONOCYTE # 1.2 10^3/ul (0.3-0.9); NEUTROPHIL # 11.6 10^3/ul (1.6-7.5); NEUTROPHILS % 85.7 % (39.0-77.0); PLATELET COUNT 131 10^3/UL (140-415); POSITIVE DIFF @See below
[2018-08-28 22:57] LABS: AMYLASE 31 U/L (11-123); ANION GAP 11 (5-13); BLOOD UREA NITROGEN 42 mg/dl (7-20); CALCIUM 7.2 mg/dl (8.4-10.2); CARBON DIOXIDE 19 mmol/L (21-31); CHLORIDE 110 mmol/L (97-110); CREATININE 2.65 mg/dl (0.61-1.24); GLUCOSE 137 mg/dl (70-220); LIPASE 14 U/L (23-300); MAGNESIUM 2.4 mg/dl (1.7-2.5); PHOSPHORUS 4.2 mg/dl (2.5-4.9); POTASSIUM 4.5 mmol/L (3.5-5.1); SODIUM 140 mmol/L (135-144)
[2018-08-28 23:01] LABS: INR 1.58; PARTIAL THROMBOPLASTIN TIME 47.3 Sec (23.0-35.0); PT RATIO 1.5
[2018-08-28 23:07] LABS: TROPONIN-I 0.111 ng/ml (0.000-0.120)
[2018-08-28 23:20] LABS: ACANTHOCYTES 1+ (0-0); ANISOCYTOSIS 1+ (0-0); BAND NEUTROPHILS #M 6.2 10^3/ul (0.0-0.6); BAND NEUTROPHILS % (M) 46 % (0-4); ECHINOCYTOSIS 1+ (0-0); EOSINOPHILS % (M) 1 % (0-7); LYMPHOCYTES #M 0.4 10^3/ul (0.8-2.9); LYMPHOCYTES % (M) 3 % (15-51); METAMYELOCYTES #M 0.1 10^3/ul (0.0-0.0); METAMYELOCYTES %M 1 % (0-0); MICROCYTOSIS 1+ (0-0); MONOCYTE #M 0.6 10^3/ul (0.3-0.9); MONOCYTES % (M) 5 % (0-11); PLATELET ESTIMATE NORMAL; POIKILOCYTOSIS 3+ (0-0); SEG NEUT #M 6.8 10^3/ul (1.6-7.5); SEGMENTED NEUTROPHILS (M) % 44 % (39-77); SMUDGE%M 55 % (0-0); TARGET CELLS 1+ (0-0)
[2018-08-28 23:24] LABS: LACTIC ACID 3.5 mmol/L (0.5-2.0)
[2018-08-28] MEDS: SOD FERRIC GLUC COMPLX 125 MG in SOD CHLORIDE 0.9% 100 ML IVPB (23:54)
[2018-08-29] MEDS: ARTIFICIAL TEARS 15 ML OPH BOTH EYES ×5 (01:01→23:12)
[2018-08-29] MEDS: OCULAR LUBRICANT 3.5 GM OPH OINT BOTH EYES ×5 (01:02→23:12)
[2018-08-29] MEDS: PIPER-TAZO 2.25 GM (PMX) 50 ML IVPB ×5 (01:06→23:13)
[2018-08-29] MEDS: ACCU-CHEK XX ×24 (01:09→23:09)
[2018-08-29 01:37] LABS: PROTEIN, TOTAL 5.1 g/dL (6.1-8.1)
[2018-08-29] MEDS: IPRATROPIUM (HFA) 12.9 GM INHALER INH ×4 (02:00→20:23)
[2018-08-29] MEDS: PROPOFOL 100 ML IV ×4 (02:31→20:37)
[2018-08-29] MEDS: NORepinephrine 8MG/250 ML (PMX 250 ML IV ×2 (04:14→14:58)
[2018-08-29 04:15] LABS: AADO2 Arterial 143.4 mmHg (7.0-24.0); Allen Test ACCEPTAB; Arterial Base Excess -4.5 mmol/L (-3.0-3); Arterial Blood Gas Oxygen Sat 97.4 mmHG (95.0-100.0); Arterial COHb 0.3 % (0.0-3.0); Arterial Fraction of Oxyhgb 96.9 % (93.0-99.0); Arterial HCO3 20.3 mmol/L (22.0-26.0); Arterial MetHb 0.2 % (0.0-1.5); Arterial pCO2 33.1 mmhg (35-45); MODE VENT - AC; Site Right Radial
[2018-08-29] MEDS: ACETAMINOPHEN 650MG/20.3ML CUP PO ×3 (04:24→20:09)
[2018-08-29] MEDS: METHYLPREDNISOLONE 40 MG INJ IV (05:11)
[2018-08-29] MEDS ORDERED: METHYLPREDNISOLONE 125 MG INJ IV (05:30)
[2018-08-29] MEDS: SODIUM BICARBONATE (IV ADD) 150 MEQ in DEXTROSE 5% 1,000 ML IV (06:08)
[2018-08-29 06:21] LABS: ADD MAN DIFF? NO
[2018-08-29 06:24] LABS: WHITE BLOOD COUNT 13.4 10^3/ul (4.8-10.8)
[2018-08-29 06:24] LABS: ABNORMAL IP MESSAGE 1; BASOPHILS % 0.1 % (0.0-2.0); EOSINOPHILS % 0.3 % (0.0-7.0); HEMATOCRIT 24.5 % (42.0-52.0); HEMOGLOBIN 8.1 g/dl (14.0-18.0); LYMPHOCYTES # 0.4 10^3/ul (0.8-2.9); LYMPHOCYTES % 2.6 % (15.0-51.0); MEAN CORPUSCULAR HEMOGLOBIN 30.6 pg (29.0-33.0); MEAN CORPUSCULAR HGB CONC 33.1 g/dl (32.0-37.0); MEAN CORPUSCULAR VOLUME 92.5 fl (82.0-101.0); MONOCYTE # 1.8 10^3/ul (0.3-0.9); MONOCYTES % 13.1 % (0.0-11.0); NEUTROPHIL # 10.8 10^3/ul (1.6-7.5); NEUTROPHILS % 80.5 % (39.0-77.0); PLATELET COUNT 133 10^3/UL (140-415); POSITIVE DIFF @See below; RED BLOOD COUNT 2.65 10^6/ul (4.70-6.10)
[2018-08-29 07:03] LABS: TROPONIN-I 0.104 ng/ml (0.000-0.120)
[2018-08-29 07:07] LABS: ANION GAP 13 (5-13); BLOOD UREA NITROGEN 44 mg/dl (7-20); CALCIUM 6.7 mg/dl (8.4-10.2); CARBON DIOXIDE 20 mmol/L (21-31); CHLORIDE 108 mmol/L (97-110); CREATININE 2.77 mg/dl (0.61-1.24); GLUCOSE 136 mg/dl (70-220); MAGNESIUM 2.3 mg/dl (1.7-2.5); PHOSPHORUS 4.6 mg/dl (2.5-4.9); POTASSIUM 4.4 mmol/L (3.5-5.1); SODIUM 141 mmol/L (135-144)
[2018-08-29 07:13] LABS: LACTIC ACID 3.1 mmol/L (0.5-2.0)
[2018-08-29] MEDS ORDERED: VANCOMYCIN 1 GM 250 ML IVPB (08:00)
[2018-08-29] MEDS: ASPIRIN 325 MG TAB PO (08:35)
[2018-08-29] MEDS: LEVETIRACETAM 500 MG (PMX) 100 ML IVPB ×2 (08:35→21:16)
[2018-08-29] MEDS: ENOXAPARIN 40 MG/0.4 ML SYG SC (08:41)
[2018-08-29 09:10] LABS: ANISOCYTOSIS 1+ (0-0); BAND NEUTROPHILS % (M) 45 % (0-4); EOSINOPHILS % (M) 1 % (0-7); LYMPHOCYTES #M 0.1 10^3/ul (0.8-2.9); LYMPHOCYTES % (M) 1 % (15-51); MONOCYTE #M 0.5 10^3/ul (0.3-0.9); MONOCYTES % (M) 4 % (0-11); PLATELET ESTIMATE DECREASED; POLYCHROMASIA 1+ (0-0); SEG NEUT #M 7.4 10^3/ul (1.6-7.5); SEGMENTED NEUTROPHILS (M) % 49 % (39-77); SMUDGE%M 10 % (0-0)
[2018-08-29] MEDS: VANCOMYCIN 1 GM (PMX) 250 ML IVPB (09:20)
[2018-08-29] MEDS: DEXTROSE 5%-0.45% NACL 1,000 ML IV (10:12)
[2018-08-29 10:19] LABS: ADD MAN DIFF? NO
[2018-08-29 10:24] LABS: ABNORMAL IP MESSAGE 1; BASOPHILS % 0.3 % (0.0-2.0); EOSINOPHILS % 0.1 % (0.0-7.0); HEMATOCRIT 23.4 % (42.0-52.0); HEMOGLOBIN 7.8 g/dl (14.0-18.0); LYMPHOCYTES # 0.3 10^3/ul (0.8-2.9); LYMPHOCYTES % 1.9 % (15.0-51.0); MEAN CORPUSCULAR HEMOGLOBIN 30.1 pg (29.0-33.0); MEAN CORPUSCULAR HGB CONC 33.3 g/dl (32.0-37.0); MEAN CORPUSCULAR VOLUME 90.3 fl (82.0-101.0); MEAN PLATELET VOLUME 10.1 fl (7.4-10.4); MONOCYTE # 0.8 10^3/ul (0.3-0.9); MONOCYTES % 5.6 % (0.0-11.0); NEUTROPHIL # 12.3 10^3/ul (1.6-7.5); NEUTROPHILS % 84.3 % (39.0-77.0); PLATELET COUNT 128 10^3/UL (140-415); POSITIVE DIFF @See below; RED BLOOD COUNT 2.59 10^6/ul (4.70-6.10); RED CELL DISTRIBUTION WIDTH 16.4 % (11.5-14.5)
[2018-08-29 10:24] LABS: WHITE BLOOD COUNT 14.5 10^3/ul (4.8-10.8)
[2018-08-29 10:49] LABS: AADO2 Arterial 119.2 mmHg (7.0-24.0); Allen Test ACCEPTAB; Arterial Blood Gas Oxygen Sat 96.1 mmHG (95.0-100.0); Arterial COHb 0.3 % (0.0-3.0); Arterial Fraction of Oxyhgb 95.3 % (93.0-99.0); Arterial HCO3 21.2 mmol/L (22.0-26.0); Arterial MetHb 0.5 % (0.0-1.5); Arterial pCO2 43.9 mmhg (35-45); MODE VENT - AC; Site Right Radial; Temperature 39.9 C
[2018-08-29 10:50] LABS: LACTIC ACID 2.5 mmol/L (0.5-2.0)
[2018-08-29 10:52] LABS: INR 1.75; PROTIME 20.5 Sec (11.9-14.9); PT RATIO 1.6
[2018-08-29 10:54] LABS: PARTIAL THROMBOPLASTIN TIME 53.9 Sec (23.0-35.0)
[2018-08-29 10:56] LABS: IONIZED CALCIUM 0.9 mmol/L (1.1-1.4)
[2018-08-29 11:09] LABS: ANION GAP 10 (5-13); BLOOD UREA NITROGEN 45 mg/dl (7-20); CALCIUM 6.8 mg/dl (8.4-10.2); CARBON DIOXIDE 24 mmol/L (21-31); CHLORIDE 106 mmol/L (97-110); CREATININE 2.79 mg/dl (0.61-1.24); GLUCOSE 140 mg/dl (70-220); LIPASE 17 U/L (23-300); MAGNESIUM 2.3 mg/dl (1.7-2.5); PHOSPHORUS 4.6 mg/dl (2.5-4.9); POTASSIUM 4.6 mmol/L (3.5-5.1); SODIUM 140 mmol/L (135-144)
[2018-08-29 11:12] LABS: AMYLASE < 30 U/L (11-123)
[2018-08-29 11:20] LABS: TROPONIN-I 0.076 ng/ml (0.000-0.120)
[2018-08-29 12:45] LABS: ANISOCYTOSIS 1+ (0-0); BAND NEUTROPHILS #M 6.5 10^3/ul (0.0-0.6); BAND NEUTROPHILS % (M) 45 % (0-4); BASOPHIL #M 0.2 10^3/ul (0.0-0.0); BASOPHILS % (M) 2 % (0-2); BURR CELLS 1+ (0-0); ERYTHROBLAST% (NRBC) (M) 1 % (0-0); LYMPHOCYTES #M 0.1 10^3/ul (0.8-2.9); LYMPHOCYTES % (M) 1 % (15-51); METAMYELOCYTES #M 0.4 10^3/ul (0.0-0.0); METAMYELOCYTES %M 3 % (0-0); MICROCYTOSIS 1+ (0-0); MONOCYTE #M 0.1 10^3/ul (0.3-0.9); MONOCYTES % (M) 1 % (0-11); OVALOCYTES 1+ (0-0); PLATELET ESTIMATE DECREASED; POIKILOCYTOSIS 1+ (0-0); REACTIVE LYMPHOCYTES #M 0.1 10^3/ul (0.0-0.0); REACTIVE LYMPHOCYTES% (M) 1 % (0-0); SEG NEUT #M 7.8 10^3/ul (1.6-7.5); SEGMENTED NEUTROPHILS (M) % 47 % (39-77); SMUDGE%M 15 % (0-0)
[2018-08-29] MEDS: SOD FERRIC GLUC COMPLX 125 MG in SOD CHLORIDE 0.9% 100 ML IVPB (12:51)
[2018-08-29] MEDS ORDERED: SOD FERRIC GLUC COMPLX 125 MG in SOD CHLORIDE 0.9% 100 ML IVPB (13:00)
[2018-08-29] MEDS: CALCIUM GLUCONATE IV ×3 (13:19→20:54)
[2018-08-29] MEDS: DEXTROSE IV ×3 (13:19→20:54)
[2018-08-29] MEDS: NACL IV ×3 (13:19→20:54)
[2018-08-29] MEDS ORDERED: NACL IV (13:45)
[2018-08-29] MEDS ORDERED: DEXTROSE IV (13:45)
[2018-08-29] MEDS ORDERED: CALCIUM GLUCONATE IV (13:45)
[2018-08-29] MEDS: INSULIN HUMAN REGULAR 100 UNIT in SOD CHLORIDE 0.9% 99 ML IV (17:31)
[2018-08-29] MEDS ORDERED: FUROSEMIDE 40 MG INJ IV (19:30)
[2018-08-29] MEDS ORDERED: AMIODARONE 900 MG in DEXTROSE 5% 482 ML IV (19:30)
[2018-08-29] MEDS ORDERED: AMIODARONE 150MG/D5W BOLUS 100 ML IV (19:30)
[2018-08-29 20:17] LABS: PSA, FREE 2.5 ng/mL
[2018-08-29] MEDS: AMIODARONE 150MG/D5W BOLUS 100 ML IV (20:38)
[2018-08-29] MEDS: AMIODARONE 900 MG in DEXTROSE 5% 482 ML IV (20:57)
[2018-08-29] MEDS: BUMETANIDE 25 MG in DEXTROSE 5% 150 ML IV (21:16)
[2018-08-29 23:23] LABS: ALPHA-1-GLOBULINS 0.4 g/dL (0.2-0.3); ALPHA-2-GLOBULINS 0.9 g/dL (0.5-0.9); BETA 2 GLOBULINS 0.2 g/dL (0.2-0.5); BETA GLOBULINS 0.3 g/dL (0.4-0.6); GAMMA GLOBULINS 0.5 g/dL (0.8-1.7)
[2018-08-30] MEDS: ACCU-CHEK XX ×24 (00:50→23:00)
[2018-08-30] MEDS: IPRATROPIUM (HFA) 12.9 GM INHALER INH ×4 (01:43→19:22)
[2018-08-30] MEDS: ACETAMINOPHEN 650MG/20.3ML CUP PO ×3 (03:42→19:52)
[2018-08-30] MEDS: METHYLPREDNISOLONE 40 MG INJ IV (05:00)
[2018-08-30] MEDS: PIPER-TAZO 2.25 GM (PMX) 50 ML IVPB ×3 (05:00→17:22)
[2018-08-30] MEDS: OCULAR LUBRICANT 3.5 GM OPH OINT BOTH EYES ×3 (05:01→17:18)
[2018-08-30] MEDS: ARTIFICIAL TEARS 15 ML OPH BOTH EYES ×3 (05:01→17:18)
[2018-08-30 05:21] LABS: ADD MAN DIFF? NO
[2018-08-30 05:29] LABS: ABNORMAL IP MESSAGE 1; BASOPHILS % 0.2 % (0.0-2.0); HEMATOCRIT 21.4 % (42.0-52.0); HEMOGLOBIN 7.1 g/dl (14.0-18.0); LYMPHOCYTES # 0.4 10^3/ul (0.8-2.9); LYMPHOCYTES % 2.6 % (15.0-51.0); MEAN CORPUSCULAR HEMOGLOBIN 30.3 pg (29.0-33.0); MEAN CORPUSCULAR HGB CONC 33.2 g/dl (32.0-37.0); MEAN CORPUSCULAR VOLUME 91.5 fl (82.0-101.0); MEAN PLATELET VOLUME 10.3 fl (7.4-10.4); MONOCYTE # 1.4 10^3/ul (0.3-0.9); MONOCYTES % 9.1 % (0.0-11.0); NEUTROPHIL # 12.3 10^3/ul (1.6-7.5); NEUTROPHILS % 81.6 % (39.0-77.0); PLATELET COUNT 116 10^3/UL (140-415); POSITIVE DIFF @See below; RED BLOOD COUNT 2.34 10^6/ul (4.70-6.10); RED CELL DISTRIBUTION WIDTH 16.5 % (11.5-14.5)
[2018-08-30] MEDS ORDERED: METHYLPREDNISOLONE 40 MG INJ IV (05:30)
[2018-08-30 06:01] LABS: ALANINE AMINOTRANSFERASE 22 IU/L (13-69); ALBUMIN 2.6 g/dl (3.3-4.9); ALBUMIN/GLOBULIN RATIO 1.08; ALKALINE PHOSPHATASE 51 IU/L (42-121); ANION GAP 10 (5-13); ASPARTATE AMINO TRANSFERASE 72 IU/L (15-46); BILIRUBIN,INDIRECT 0.1 mg/dl (0-1.1); BILIRUBIN,TOTAL 0.1 mg/dl (0.2-1.3); BLOOD UREA NITROGEN 53 mg/dl (7-20); CARBON DIOXIDE 22 mmol/L (21-31); CHLORIDE 107 mmol/L (97-110); CREATININE 3.48 mg/dl (0.61-1.24); GLUCOSE 97 mg/dl (70-220); MAGNESIUM 2.3 mg/dl (1.7-2.5); PHOSPHORUS 5.3 mg/dl (2.5-4.9); POTASSIUM 4.5 mmol/L (3.5-5.1); SODIUM 139 mmol/L (135-144)
[2018-08-30 08:35] LABS: AHG CROSSMATCH 1 2
[2018-08-30] MEDS: ENOXAPARIN 30 MG/0.3 ML SYG SC (09:00)
[2018-08-30] MEDS: ASPIRIN 325 MG TAB PO (09:48)
[2018-08-30] MEDS: LEVETIRACETAM 500 MG (PMX) 100 ML IVPB ×2 (09:48→20:34)
[2018-08-30] MEDS: HEPARIN 5,000 UNIT/1 ML VIAL SC ×2 (12:06→20:42)
[2018-08-30 12:09] LABS: AADO2 Arterial 104.7 mmHg (7.0-24.0); Arterial Base Excess -5.4 mmol/L (-3.0-3); Arterial Blood Gas Oxygen Sat 97.1 mmHG (95.0-100.0); Arterial COHb 0.3 % (0.0-3.0); Arterial Fraction of Oxyhgb 96.6 % (93.0-99.0); Arterial HCO3 19.4 mmol/L (22.0-26.0); Arterial MetHb 0.2 % (0.0-1.5); Arterial pCO2 35.2 mmhg (35-45); MODE VENT - AC; Site Right Brachial
[2018-08-30 12:47] LABS: AADO2 Arterial 434.3 mmHg (7.0-24.0); Allen Test ACCEPTAB; Arterial Base Excess -6.4 mmol/L (-3.0-3); Arterial Blood Gas Oxygen Sat 98.6 mmHG (95.0-100.0); Arterial COHb 0.3 % (0.0-3.0); Arterial Fraction of Oxyhgb 97.9 % (93.0-99.0); Arterial HCO3 19.3 mmol/L (22.0-26.0); Arterial MetHb 0.4 % (0.0-1.5); Arterial pCO2 39.2 mmhg (35-45); MODE NASAL CANNULA; Site Right Radial
[2018-08-30] MEDS: SOD FERRIC GLUC COMPLX 125 MG in SOD CHLORIDE 0.9% 100 ML IVPB (13:44)
[2018-08-30] MEDS: FENTAnyl (DRIP) 1000 mcg/100mL 100 ML IV (15:22)
[2018-08-30] MEDS: CALCIUM GLUCONATE IV (15:26)
[2018-08-30] MEDS: DEXTROSE IV (15:26)
[2018-08-30] MEDS: NACL IV (15:26)
[2018-08-30] MEDS: AMIODARONE 200 MG TAB NGT (19:52)
[2018-08-30] MEDS: BUMETANIDE 25 MG in DEXTROSE 5% 150 ML IV (20:01)
[2018-08-30 21:53] LABS: ERYTHROPOIETIN 35.4 mIU/mL (2.6-18.5)
[2018-08-30] MEDS: PROPOFOL 100 ML IV (23:30)
[2018-08-31] MEDS: ACCU-CHEK XX ×24 (00:21→23:00)
[2018-08-31] MEDS: PIPER-TAZO 2.25 GM (PMX) 50 ML IVPB ×4 (00:22→18:34)
[2018-08-31] MEDS: OCULAR LUBRICANT 3.5 GM OPH OINT BOTH EYES ×4 (00:22→18:35)
[2018-08-31] MEDS: ARTIFICIAL TEARS 15 ML OPH BOTH EYES ×4 (00:22→18:35)
[2018-08-31] MEDS: IPRATROPIUM (HFA) 12.9 GM INHALER INH ×4 (01:07→19:12)
[2018-08-31] MEDS: ACETAMINOPHEN 650MG/20.3ML CUP PO (03:58)
[2018-08-31] MEDS: INSULIN HUMAN REGULAR 100 UNIT in SOD CHLORIDE 0.9% 99 ML IV ×2 (04:05→18:34)
[2018-08-31 05:27] LABS: ADD MAN DIFF? NO
[2018-08-31 05:34] LABS: ABNORMAL IP MESSAGE 1; BASOPHILS % 0.1 % (0.0-2.0); HEMATOCRIT 24.6 % (42.0-52.0); HEMOGLOBIN 8.2 g/dl (14.0-18.0); LYMPHOCYTES # 0.4 10^3/ul (0.8-2.9); LYMPHOCYTES % 2.1 % (15.0-51.0); MEAN CORPUSCULAR HGB CONC 33.3 g/dl (32.0-37.0); MEAN CORPUSCULAR VOLUME 90.1 fl (82.0-101.0); MEAN PLATELET VOLUME 10.4 fl (7.4-10.4); MONOCYTE # 1.4 10^3/ul (0.3-0.9); MONOCYTES % 7.8 % (0.0-11.0); NEUTROPHIL # 15.5 10^3/ul (1.6-7.5); NEUTROPHILS % 88.8 % (39.0-77.0); PLATELET COUNT 105 10^3/UL (140-415); POSITIVE DIFF @See below; RED BLOOD COUNT 2.73 10^6/ul (4.70-6.10); RED CELL DISTRIBUTION WIDTH 16.5 % (11.5-14.5)
[2018-08-31 05:34] LABS: WHITE BLOOD COUNT 17.4 10^3/ul (4.8-10.8)
[2018-08-31 05:50] LABS: INR 1.11; PROTIME 14.4 Sec (11.9-14.9); PT RATIO 1.1
[2018-08-31 05:51] LABS: PARTIAL THROMBOPLASTIN TIME 40.9 Sec (23.0-35.0); THROMBIN TIME 17.7 SEC (13.8-19.1)
[2018-08-31 06:08] LABS: ALANINE AMINOTRANSFERASE 22 IU/L (13-69); ALBUMIN 2.8 g/dl (3.3-4.9); ALBUMIN/GLOBULIN RATIO 1.03; ALKALINE PHOSPHATASE 58 IU/L (42-121); ANION GAP 13 (5-13); ASPARTATE AMINO TRANSFERASE 76 IU/L (15-46); BLOOD UREA NITROGEN 65 mg/dl (7-20); CALCIUM 7.1 mg/dl (8.4-10.2); CARBON DIOXIDE 19 mmol/L (21-31); CHLORIDE 103 mmol/L (97-110); CREATININE 4.05 mg/dl (0.61-1.24); GLUCOSE 160 mg/dl (70-220); MAGNESIUM 2.3 mg/dl (1.7-2.5); PHOSPHORUS 7.6 mg/dl (2.5-4.9); POTASSIUM 4.8 mmol/L (3.5-5.1); SODIUM 135 mmol/L (135-144); TOTAL PROTEIN 5.5 g/dl (6.1-8.1)
[2018-08-31 07:31] LABS: PLATELET COUNT 105 10^3/UL (140-415)
[2018-08-31 09:12] LABS: ANISOCYTOSIS 1+ (0-0); BAND NEUTROPHILS #M 3.1 10^3/ul (0.0-0.6); BAND NEUTROPHILS % (M) 18 % (0-4); BURR CELLS 1+ (0-0); MONOCYTES % (M) 12 % (0-11); OVALOCYTES 1+ (0-0); PLATELET ESTIMATE DECREASED; POIKILOCYTOSIS 2+ (0-0); SEG NEUT #M 12.7 10^3/ul (1.6-7.5); SEGMENTED NEUTROPHILS (M) % 70 % (39-77); SMUDGE%M 1 % (0-0)
[2018-08-31] MEDS: NACL IV (09:48)
[2018-08-31] MEDS: DEXTROSE IV (09:48)
[2018-08-31] MEDS: CALCIUM GLUCONATE IV (09:48)
[2018-08-31] MEDS: LEVETIRACETAM 500 MG (PMX) 100 ML IVPB ×2 (09:57→21:38)
[2018-08-31] MEDS: ASPIRIN 325 MG TAB PO (09:57)
[2018-08-31] MEDS: HEPARIN 5,000 UNIT/1 ML VIAL SC ×2 (09:59→21:41)
[2018-08-31] MEDS: DEXTROSE 5%-0.45% NACL 1,000 ML IV (10:03)
[2018-08-31] MEDS: PROPOFOL 100 ML IV ×2 (11:06→23:30)
[2018-08-31] MEDS: AMIODARONE 200 MG TAB PO ×2 (12:29→21:38)
[2018-08-31] MEDS: SOD FERRIC GLUC COMPLX 125 MG in SOD CHLORIDE 0.9% 100 ML IVPB (13:03)
[2018-08-31] MEDS: BUMETANIDE 25 MG in DEXTROSE 5% 150 ML IV (18:34)
[2018-08-31] MEDS: EPOETIN 10000 UNITS/ML (NON ESRD/NON ONCOLOGY) SC (18:42)
[2018-08-31 19:36] LABS: Allen Test ACCEPTAB; Arterial Base Excess -6.2 mmol/L (-3.0-3); Arterial Blood Gas Oxygen Sat 96.9 mmHG (95.0-100.0); Arterial COHb 0.3 % (0.0-3.0); Arterial Fraction of Oxyhgb 96.4 % (93.0-99.0); Arterial HCO3 19.1 mmol/L (22.0-26.0); Arterial MetHb 0.2 % (0.0-1.5); Arterial pCO2 36.7 mmhg (35-45); MODE VENT - AC; Site Right Radial
[2018-09-01] MEDS: OCULAR LUBRICANT 3.5 GM OPH OINT BOTH EYES ×5 (00:28→23:28)
[2018-09-01] MEDS: ARTIFICIAL TEARS 15 ML OPH BOTH EYES ×5 (00:28→23:28)
[2018-09-01] MEDS: PIPER-TAZO 2.25 GM (PMX) 50 ML IVPB ×5 (00:28→23:28)
[2018-09-01] MEDS: ACCU-CHEK XX ×25 (00:44→23:37)
[2018-09-01] MEDS: IPRATROPIUM (HFA) 12.9 GM INHALER INH ×4 (01:08→19:26)
[2018-09-01 05:06] LABS: ADD MAN DIFF? NO
[2018-09-01 05:17] LABS: ABNORMAL IP MESSAGE 1; BASOPHIL # 0.1 10^3/ul (0.0-0.1); BASOPHILS % 0.4 % (0.0-2.0); EOSINOPHILS % 0.1 % (0.0-7.0); HEMATOCRIT 25.4 % (42.0-52.0); HEMOGLOBIN 8.6 g/dl (14.0-18.0); LYMPHOCYTES # 0.4 10^3/ul (0.8-2.9); LYMPHOCYTES % 2.6 % (15.0-51.0); MEAN CORPUSCULAR HEMOGLOBIN 30.4 pg (29.0-33.0); MEAN CORPUSCULAR HGB CONC 33.9 g/dl (32.0-37.0); MEAN CORPUSCULAR VOLUME 89.8 fl (82.0-101.0); MEAN PLATELET VOLUME 10.2 fl (7.4-10.4); MONOCYTE # 1.7 10^3/ul (0.3-0.9); MONOCYTES % 10.2 % (0.0-11.0); NEUTROPHIL # 13.9 10^3/ul (1.6-7.5); NEUTROPHILS % 83.7 % (39.0-77.0); PLATELET COUNT 115 10^3/UL (140-415); POSITIVE DIFF @See below; RED BLOOD COUNT 2.83 10^6/ul (4.70-6.10); RED CELL DISTRIBUTION WIDTH 16.2 % (11.5-14.5)
[2018-09-01 05:17] LABS: WHITE BLOOD COUNT 16.6 10^3/ul (4.8-10.8)
[2018-09-01 05:18] LABS: OCCULT BLOOD STOOL POSITIVE (NEGATIVE)
[2018-09-01 05:37] LABS: ALANINE AMINOTRANSFERASE 24 IU/L (13-69); ALBUMIN 2.9 g/dl (3.3-4.9); ALKALINE PHOSPHATASE 71 IU/L (42-121); ANION GAP 14 (5-13); ASPARTATE AMINO TRANSFERASE 84 IU/L (15-46); BLOOD UREA NITROGEN 86 mg/dl (7-20); CALCIUM 7.6 mg/dl (8.4-10.2); CARBON DIOXIDE 20 mmol/L (21-31); CHLORIDE 104 mmol/L (97-110); CREATININE 4.19 mg/dl (0.61-1.24); GLUCOSE 95 mg/dl (70-220); POTASSIUM 4.7 mmol/L (3.5-5.1); SODIUM 138 mmol/L (135-144); TOTAL PROTEIN 5.3 g/dl (6.1-8.1)
[2018-09-01 05:44] LABS: IRON 165 ug/dl (35-150)
[2018-09-01 05:53] LABS: % IRON SATURATION 80 % SAT (22-52); TOTAL IRON BINDING CAPACITY 207 ug/dl (241-421)
[2018-09-01 08:04] LABS: Allen Test ACCEPTAB; Arterial Base Excess -5.2 mmol/L (-3.0-3); Arterial Blood Gas Oxygen Sat 97.6 mmHG (95.0-100.0); Arterial COHb 0.3 % (0.0-3.0); Arterial Fraction of Oxyhgb 97.1 % (93.0-99.0); Arterial HCO3 19.5 mmol/L (22.0-26.0); Arterial MetHb 0.2 % (0.0-1.5); Arterial pCO2 35.2 mmhg (35-45); MODE VENT - AC; Site Right Radial
[2018-09-01] MEDS: AMIODARONE 200 MG TAB PO ×2 (08:06→20:49)
[2018-09-01] MEDS: LEVETIRACETAM 500 MG (PMX) 100 ML IVPB ×2 (08:06→21:41)
[2018-09-01] MEDS: ASPIRIN 325 MG TAB PO (08:06)
[2018-09-01] MEDS: HEPARIN 5,000 UNIT/1 ML VIAL SC ×2 (08:10→20:51)
[2018-09-01] MEDS: DEXTROSE 5%-0.45% NACL 1,000 ML IV (10:15)
[2018-09-01] MEDS: PROPOFOL 100 ML IV ×2 (11:08→23:09)
[2018-09-01] MEDS: SOD FERRIC GLUC COMPLX 125 MG in SOD CHLORIDE 0.9% 100 ML IVPB (12:24)
[2018-09-01] MEDS: BUMETANIDE 25 MG in DEXTROSE 5% 150 ML IV (19:41)
[2018-09-02] MEDS: ACCU-CHEK XX ×23 (01:07→23:02)
[2018-09-02] MEDS: IPRATROPIUM (HFA) 12.9 GM INHALER INH ×4 (01:20→19:53)
[2018-09-02 02:26] LABS: ANION GAP 17 (5-13); BLOOD UREA NITROGEN 94 mg/dl (7-20); CARBON DIOXIDE 21 mmol/L (21-31); CHLORIDE 99 mmol/L (97-110); CREATININE 4.11 mg/dl (0.61-1.24); GLUCOSE 128 mg/dl (70-220); MAGNESIUM 2.2 mg/dl (1.7-2.5); POTASSIUM 4.6 mmol/L (3.5-5.1); SODIUM 137 mmol/L (135-144)
[2018-09-02] MEDS: PIPER-TAZO 2.25 GM (PMX) 50 ML IVPB ×2 (05:29→11:46)
[2018-09-02] MEDS: ARTIFICIAL TEARS 15 ML OPH BOTH EYES ×3 (05:29→18:22)
[2018-09-02] MEDS: OCULAR LUBRICANT 3.5 GM OPH OINT BOTH EYES ×3 (05:29→18:22)
[2018-09-02 05:50] LABS: WHITE BLOOD COUNT 12.6 10^3/ul (4.8-10.8)
[2018-09-02 05:50] LABS: ABNORMAL IP MESSAGE 1; HEMATOCRIT 26.5 % (42.0-52.0); MEAN CORPUSCULAR HEMOGLOBIN 29.8 pg (29.0-33.0); MEAN CORPUSCULAR VOLUME 87.7 fl (82.0-101.0); MEAN PLATELET VOLUME 10.5 fl (7.4-10.4); NUCLEATED RED BLOOD CELLS% 0.2 /100WBC (0.0-0.0); PLATELET COUNT 115 10^3/UL (140-415); POSITIVE DIFF @See below; RED BLOOD COUNT 3.02 10^6/ul (4.70-6.10); RED CELL DISTRIBUTION WIDTH 16.4 % (11.5-14.5)
[2018-09-02 06:08] LABS: ADD MAN DIFF? YES
[2018-09-02 06:08] LABS: LACTIC ACID 1.2 mmol/L (0.5-2.0)
[2018-09-02 06:30] LABS: MAGNESIUM 2.3 mg/dl (1.7-2.5)
[2018-09-02 07:30] LABS: ALANINE AMINOTRANSFERASE 43 IU/L (13-69); ALBUMIN/GLOBULIN RATIO 1.25; ALKALINE PHOSPHATASE 120 IU/L (42-121); ANION GAP 19 (5-13); ASPARTATE AMINO TRANSFERASE 89 IU/L (15-46); BILIRUBIN,INDIRECT 0.1 mg/dl (0-1.1); BILIRUBIN,TOTAL 0.1 mg/dl (0.2-1.3); BLOOD UREA NITROGEN 101 mg/dl (7-20); CALCIUM 8.2 mg/dl (8.4-10.2); CARBON DIOXIDE 19 mmol/L (21-31); CHLORIDE 100 mmol/L (97-110); CREATININE 3.95 mg/dl (0.61-1.24); GLUCOSE 128 mg/dl (70-220); POTASSIUM 4.9 mmol/L (3.5-5.1); SODIUM 138 mmol/L (135-144); TOTAL PROTEIN 5.4 g/dl (6.1-8.1)
[2018-09-02 08:03] LABS: ANISOCYTOSIS 1+ (0-0); BAND NEUTROPHILS #M 0.7 10^3/ul (0.0-0.6); BAND NEUTROPHILS % (M) 6 % (0-4); GIANT THROMBO% (M) 2 % (0-0); LYMPHOCYTES #M 1.5 10^3/ul (0.8-2.9); LYMPHOCYTES % (M) 12 % (15-51); MICROCYTOSIS 1+ (0-0); MONOCYTE #M 2.7 10^3/ul (0.3-0.9); MONOCYTES % (M) 22 % (0-11); PLATELET ESTIMATE DECREASED; REACTIVE LYMPHOCYTES #M 0.2 10^3/ul (0.0-0.0); REACTIVE LYMPHOCYTES% (M) 2 % (0-0); SEG NEUT #M 7.4 10^3/ul (1.6-7.5); SEGMENTED NEUTROPHILS (M) % 58 % (39-77); SMUDGE%M 9 % (0-0)
[2018-09-02] MEDS: LEVETIRACETAM 500 MG (PMX) 100 ML IVPB ×2 (08:45→20:47)
[2018-09-02] MEDS: ASPIRIN 325 MG TAB PO (08:46)
[2018-09-02] MEDS: AMIODARONE 200 MG TAB PO ×2 (08:46→20:47)
[2018-09-02] MEDS: HEPARIN 5,000 UNIT/1 ML VIAL SC ×2 (08:49→20:55)
[2018-09-02] MEDS: PROPOFOL 100 ML IV ×2 (11:30→22:51)
[2018-09-03] MEDS: OCULAR LUBRICANT 3.5 GM OPH OINT BOTH EYES ×4 (00:21→17:14)
[2018-09-03] MEDS: ARTIFICIAL TEARS 15 ML OPH BOTH EYES ×4 (00:22→17:14)
[2018-09-03] MEDS: IPRATROPIUM (HFA) 12.9 GM INHALER INH ×2 (01:16→08:02)
[2018-09-03] MEDS: ACCU-CHEK XX ×20 (01:24→19:22)
[2018-09-03 05:30] LABS: ADD MAN DIFF? NO
[2018-09-03 05:39] LABS: ABNORMAL IP MESSAGE 1; HEMATOCRIT 25.3 % (42.0-52.0); HEMOGLOBIN 8.5 g/dl (14.0-18.0); MEAN CORPUSCULAR HEMOGLOBIN 29.6 pg (29.0-33.0); MEAN CORPUSCULAR HGB CONC 33.6 g/dl (32.0-37.0); MEAN CORPUSCULAR VOLUME 88.2 fl (82.0-101.0); MEAN PLATELET VOLUME 10.7 fl (7.4-10.4); NUCLEATED RED BLOOD CELLS% 0.1 /100WBC (0.0-0.0); PLATELET COUNT 122 10^3/UL (140-415); POSITIVE DIFF @See below; RED BLOOD COUNT 2.87 10^6/ul (4.70-6.10); RED CELL DISTRIBUTION WIDTH 16.4 % (11.5-14.5)
[2018-09-03 05:39] LABS: WHITE BLOOD COUNT 13.9 10^3/ul (4.8-10.8)
[2018-09-03 06:33] LABS: ALANINE AMINOTRANSFERASE 41 IU/L (13-69); ALBUMIN 3.2 g/dl (3.3-4.9); ALKALINE PHOSPHATASE 168 IU/L (42-121); ANION GAP 16 (5-13); ASPARTATE AMINO TRANSFERASE 79 IU/L (15-46); BILIRUBIN,INDIRECT 0.2 mg/dl (0-1.1); BILIRUBIN,TOTAL 0.2 mg/dl (0.2-1.3); BLOOD UREA NITROGEN 113 mg/dl (7-20); CALCIUM 8.8 mg/dl (8.4-10.2); CARBON DIOXIDE 23 mmol/L (21-31); CHLORIDE 99 mmol/L (97-110); CREATININE 4.12 mg/dl (0.61-1.24); GLUCOSE 125 mg/dl (70-220); MAGNESIUM 2.4 mg/dl (1.7-2.5); PHOSPHORUS 8.2 mg/dl (2.5-4.9); POTASSIUM 5.1 mmol/L (3.5-5.1); SODIUM 138 mmol/L (135-144); TOTAL PROTEIN 6.1 g/dl (6.1-8.1)
[2018-09-03] MEDS: INSULIN HUMAN REGULAR 100 UNIT in SOD CHLORIDE 0.9% 99 ML IV (06:38)
[2018-09-03] MEDS: ASPIRIN 325 MG TAB PO (08:57)
[2018-09-03] MEDS: LEVETIRACETAM 500 MG (PMX) 100 ML IVPB ×2 (08:57→21:04)
[2018-09-03] MEDS: AMIODARONE 200 MG TAB PO ×2 (08:57→21:05)
[2018-09-03] MEDS: HEPARIN 5,000 UNIT/1 ML VIAL SC ×2 (08:59→21:06)
[2018-09-03 09:21] LABS: ANISOCYTOSIS 1+ (0-0); BAND NEUTROPHILS #M 1.6 10^3/ul (0.0-0.6); BAND NEUTROPHILS % (M) 12 % (0-4); EOSINOPHILS % (M) 1 % (0-7); HYPOCHROMASIA 1+ (0-0); LYMPHOCYTES #M 0.2 10^3/ul (0.8-2.9); LYMPHOCYTES % (M) 2 % (15-51); METAMYELOCYTES #M 0.2 10^3/ul (0.0-0.0); METAMYELOCYTES %M 2 % (0-0); MONOCYTE #M 2.3 10^3/ul (0.3-0.9); MONOCYTES % (M) 17 % (0-11); MYELOCYTES #M 0.5 10^3/ul (0.0-0.0); MYELOCYTES % (M) 4 % (0-0); OVALOCYTES 1+ (0-0); PLATELET ESTIMATE DECREASED; POIKILOCYTOSIS 1+ (0-0); POLYCHROMASIA 1+ (0-0); PROMYELOCYTES #M 0.1 10^3/ul (0-0); PROMYELOCYTES % (M) 1 % (0-0); SEG NEUT #M 8.7 10^3/ul (1.6-7.5); SEGMENTED NEUTROPHILS (M) % 61 % (39-77); SMUDGE%M 3 % (0-0)
[2018-09-03] MEDS: PROPOFOL 100 ML IV ×2 (11:30→23:30)
[2018-09-03] MEDS: EPOETIN 10000 UNITS/ML (NON ESRD/NON ONCOLOGY) SC (17:07)
[2018-09-04] MEDS: ACCU-CHEK XX ×21 (01:13→23:00)
[2018-09-04] MEDS: ARTIFICIAL TEARS 15 ML OPH BOTH EYES ×4 (01:15→17:27)
[2018-09-04] MEDS: OCULAR LUBRICANT 3.5 GM OPH OINT BOTH EYES ×4 (01:15→17:27)
[2018-09-04] MEDS: INSULIN HUMAN REGULAR 100 UNIT in SOD CHLORIDE 0.9% 99 ML IV (05:09)
[2018-09-04 06:11] LABS: WHITE BLOOD COUNT 16.2 10^3/ul (4.8-10.8)
[2018-09-04 06:11] LABS: ABNORMAL IP MESSAGE 1; HEMATOCRIT 22.9 % (42.0-52.0); HEMOGLOBIN 7.4 g/dl (14.0-18.0); MEAN CORPUSCULAR HEMOGLOBIN 29.2 pg (29.0-33.0); MEAN CORPUSCULAR HGB CONC 32.3 g/dl (32.0-37.0); MEAN CORPUSCULAR VOLUME 90.5 fl (82.0-101.0); MEAN PLATELET VOLUME 11.3 fl (7.4-10.4); NUCLEATED RED BLOOD CELLS% 0.3 /100WBC (0.0-0.0); PLATELET COUNT 142 10^3/UL (140-415); POSITIVE DIFF @See below; RED BLOOD COUNT 2.53 10^6/ul (4.70-6.10); RED CELL DISTRIBUTION WIDTH 16.9 % (11.5-14.5)
[2018-09-04 06:16] LABS: ADD MAN DIFF? YES
[2018-09-04 08:36] LABS: ALANINE AMINOTRANSFERASE 46 IU/L (13-69); ALBUMIN 3.2 g/dl (3.3-4.9); ALBUMIN/GLOBULIN RATIO 1.23; ALKALINE PHOSPHATASE 222 IU/L (42-121); ANION GAP 13 (5-13); ASPARTATE AMINO TRANSFERASE 93 IU/L (15-46); BILIRUBIN,INDIRECT 0.1 mg/dl (0-1.1); BILIRUBIN,TOTAL 0.1 mg/dl (0.2-1.3); CALCIUM 8.7 mg/dl (8.4-10.2); CARBON DIOXIDE 23 mmol/L (21-31); CHLORIDE 102 mmol/L (97-110); CREATININE 4.35 mg/dl (0.61-1.24); GLUCOSE 131 mg/dl (70-220); MAGNESIUM 2.6 mg/dl (1.7-2.5); PHOSPHORUS 8.3 mg/dl (2.5-4.9); POTASSIUM 5.7 mmol/L (3.5-5.1); SODIUM 138 mmol/L (135-144); TOTAL PROTEIN 5.8 g/dl (6.1-8.1)
[2018-09-04 08:44] LABS: BLOOD UREA NITROGEN 135 mg/dl (7-20)
[2018-09-04] MEDS: ASPIRIN 325 MG TAB PO (09:08)
[2018-09-04] MEDS: LEVETIRACETAM 500 MG (PMX) 100 ML IVPB ×2 (09:08→20:01)
[2018-09-04] MEDS: AMIODARONE 200 MG TAB PO ×2 (09:08→20:02)
[2018-09-04] MEDS: HEPARIN 5,000 UNIT/1 ML VIAL SC ×2 (09:09→20:15)
[2018-09-04] MEDS: DIGOXIN 500 MCG INJ IV (11:24)
[2018-09-04 16:21] LABS: LACTIC ACID 1.4 mmol/L (0.5-2.0)
[2018-09-04] MEDS: CEFEPIME 1GM/50 ML (PMX) 50 ML IVPB (17:29)
[2018-09-04 19:51] LABS: ADD UMIC YES; UR ASCORBIC ACID NEGATIVE (NEGATIVE); UR BACTERIA FEW /HPF (NONE SEEN); UR BILIRUBIN (Dip) NEGATIVE (NEGATIVE); UR BLOOD (Dip) 3+ mg/dL (NEGATIVE); UR CLARITY SLIGHTLY CLOUDY (CLEAR); UR COLOR YELLOW (YELLOW); UR GLUCOSE (Dip) NEGATIVE (NEGATIVE); UR KETONES (Dip) NEGATIVE (NEGATIVE); UR LEUKOCYTE ESTERASE (Dip) NEGATIVE Leu/ul (NEGATIVE); UR NITRITE (Dip) NEGATIVE (NEGATIVE); UR RBC > 182 /HPF (0-5); UR SPECIFIC GRAVITY (Dip) 1.014 (1.003-1.030); UR TOTAL PROTEIN (Dip) 1+ mg/dl (NEGATIVE); UR UROBILINOGEN (Dip) NEGATIVE (NEGATIVE); UR WBC 4 /HPF (0-5)
[2018-09-04 23:03] LABS: LACTIC ACID 1.5 mmol/L (0.5-2.0)
[2018-09-05] MEDS: ACCU-CHEK XX ×24 (00:12→23:23)
[2018-09-05] MEDS: ARTIFICIAL TEARS 15 ML OPH BOTH EYES ×5 (00:14→23:31)
[2018-09-05] MEDS: OCULAR LUBRICANT 3.5 GM OPH OINT BOTH EYES ×5 (00:14→23:31)
[2018-09-05 05:29] LABS: WHITE BLOOD COUNT 18.9 10^3/ul (4.8-10.8)
[2018-09-05 05:29] LABS: ABNORMAL IP MESSAGE 1; HEMATOCRIT 21.5 % (42.0-52.0); MEAN CORPUSCULAR HEMOGLOBIN 29.7 pg (29.0-33.0); MEAN CORPUSCULAR HGB CONC 32.1 g/dl (32.0-37.0); MEAN CORPUSCULAR VOLUME 92.7 fl (82.0-101.0); MEAN PLATELET VOLUME 11.2 fl (7.4-10.4); NUCLEATED RED BLOOD CELLS% 0.3 /100WBC (0.0-0.0); PLATELET COUNT 164 10^3/UL (140-415); POSITIVE DIFF @See below; RED BLOOD COUNT 2.32 10^6/ul (4.70-6.10); RED CELL DISTRIBUTION WIDTH 17.2 % (11.5-14.5)
[2018-09-05 05:39] LABS: ADD MAN DIFF? YES
[2018-09-05 05:40] LABS: HEMOGLOBIN 6.9 g/dl (14.0-18.0)
[2018-09-05 05:50] LABS: ALANINE AMINOTRANSFERASE 56 IU/L (13-69); ALBUMIN 3.2 g/dl (3.3-4.9); ALBUMIN/GLOBULIN RATIO 1.18; ALKALINE PHOSPHATASE 291 IU/L (42-121); ANION GAP 13 (5-13); ASPARTATE AMINO TRANSFERASE 126 IU/L (15-46); BILIRUBIN,INDIRECT 0.1 mg/dl (0-1.1); BILIRUBIN,TOTAL 0.1 mg/dl (0.2-1.3); CALCIUM 8.7 mg/dl (8.4-10.2); CARBON DIOXIDE 23 mmol/L (21-31); CHLORIDE 104 mmol/L (97-110); CREATININE 4.33 mg/dl (0.61-1.24); GLUCOSE 126 mg/dl (70-220); SODIUM 140 mmol/L (135-144); TOTAL PROTEIN 5.9 g/dl (6.1-8.1)
[2018-09-05 06:22] LABS: POTASSIUM 6.5 mmol/L (3.5-5.1)
[2018-09-05] MEDS ORDERED: SODIUM POLYSTYRENE 15 GM KIT (POWDER + SORBITOL) NGT (07:00)
[2018-09-05 07:53] LABS: ANISOCYTOSIS 1+ (0-0); BAND NEUTROPHILS #M 2.2 10^3/ul (0.0-0.6); BAND NEUTROPHILS % (M) 12 % (0-4); EOSINOPHILS % (M) 4 % (0-7); GIANT THROMBO% (M) 1 % (0-0); LYMPHOCYTES #M 1.3 10^3/ul (0.8-2.9); LYMPHOCYTES % (M) 7 % (15-51); METAMYELOCYTES #M 1.1 10^3/ul (0.0-0.0); METAMYELOCYTES %M 6 % (0-0); MICROCYTOSIS 1+ (0-0); MONOCYTE #M 0.7 10^3/ul (0.3-0.9); MONOCYTES % (M) 4 % (0-11); MYELOCYTES #M 0.7 10^3/ul (0.0-0.0); MYELOCYTES % (M) 4 % (0-0); PLATELET ESTIMATE NORMAL; POIKILOCYTOSIS 1+ (0-0); POLYCHROMASIA 3+ (0-0); PROMYELOCYTES #M 0.1 10^3/ul (0-0); PROMYELOCYTES % (M) 1 % (0-0); REACTIVE LYMPHOCYTES #M 0.3 10^3/ul (0.0-0.0); REACTIVE LYMPHOCYTES% (M) 2 % (0-0); SEG NEUT #M 11.8 10^3/ul (1.6-7.5); SEGMENTED NEUTROPHILS (M) % 60 % (39-77); SMUDGE%M 24 % (0-0); TARGET CELLS 1+ (0-0)
[2018-09-05] MEDS: AMIODARONE 200 MG TAB PO ×2 (08:18→21:01)
[2018-09-05] MEDS: ASPIRIN 325 MG TAB PO (08:18)
[2018-09-05] MEDS: HEPARIN 5,000 UNIT/1 ML VIAL SC ×2 (08:25→21:02)
[2018-09-05] MEDS ORDERED: DEXTROSE 5% 1,000 ML IV (08:30)
[2018-09-05] MEDS: LEVETIRACETAM 500 MG (PMX) 100 ML IVPB ×2 (08:42→21:00)
[2018-09-05] MEDS: NA POLYST SULFON 15 GM/60 ML BTL NGT (08:47)
[2018-09-05] MEDS ORDERED: SODIUM BICARBONATE (IV ADD) 150 MEQ in DEXTROSE 5% 850 ML IV (11:00)
[2018-09-05] MEDS: BUMETANIDE 1 MG INJ IV ×4 (12:00→23:33)
[2018-09-05] MEDS: DIGOXIN 500 MCG INJ IV (12:57)
[2018-09-05] MEDS: SODIUM BICARBONATE (IV ADD) 150 MEQ in DEXTROSE 5% 850 ML IV ×2 (12:57→23:19)
[2018-09-05 14:17] LABS: HEPARIN INDUCED PLATELET AB NEGATIVE (NEGATIVE)
[2018-09-05 14:48] LABS: ANION GAP 15 (5-13); CALCIUM 8.4 mg/dl (8.4-10.2); CARBON DIOXIDE 24 mmol/L (21-31); CHLORIDE 102 mmol/L (97-110); CREATININE 4.18 mg/dl (0.61-1.24); GLUCOSE 155 mg/dl (70-220); SODIUM 141 mmol/L (135-144)
[2018-09-05 14:57] LABS: POTASSIUM 6.1 mmol/L (3.5-5.1)
[2018-09-05 14:58] LABS: BLOOD UREA NITROGEN 156 mg/dl (7-20)
[2018-09-05] MEDS: CEFEPIME 1GM/50 ML (PMX) 50 ML IVPB (17:53)
[2018-09-05] MEDS: EPOETIN 10000 UNITS/ML (NON ESRD/NON ONCOLOGY) SC (17:54)
[2018-09-05] MEDS: INSULIN HUMAN REGULAR 100 UNIT in SOD CHLORIDE 0.9% 99 ML IV (21:48)
[2018-09-06] MEDS: ACCU-CHEK XX ×11 (01:01→10:04)
[2018-09-06 05:03] LABS: WHITE BLOOD COUNT 17.8 10^3/ul (4.8-10.8)
[2018-09-06 05:03] LABS: ABNORMAL IP MESSAGE 1; HEMATOCRIT 22.7 % (42.0-52.0); HEMOGLOBIN 7.3 g/dl (14.0-18.0); MEAN CORPUSCULAR HEMOGLOBIN 29.4 pg (29.0-33.0); MEAN CORPUSCULAR HGB CONC 32.2 g/dl (32.0-37.0); MEAN CORPUSCULAR VOLUME 91.5 fl (82.0-101.0); MEAN PLATELET VOLUME 11.5 fl (7.4-10.4); NUCLEATED RED BLOOD CELLS% 0.2 /100WBC (0.0-0.0); PLATELET COUNT 162 10^3/UL (140-415); POSITIVE DIFF @See below; RED BLOOD COUNT 2.48 10^6/ul (4.70-6.10); RED CELL DISTRIBUTION WIDTH 17.2 % (11.5-14.5)
[2018-09-06 05:06] LABS: ADD MAN DIFF? YES
[2018-09-06 05:11] LABS: ALANINE AMINOTRANSFERASE 134 IU/L (13-69); ALBUMIN/GLOBULIN RATIO 1.03; ALKALINE PHOSPHATASE 395 IU/L (42-121); ANION GAP 12 (5-13); ASPARTATE AMINO TRANSFERASE 243 IU/L (15-46); BILIRUBIN,INDIRECT 0.1 mg/dl (0-1.1); BILIRUBIN,TOTAL 0.1 mg/dl (0.2-1.3); CALCIUM 8.1 mg/dl (8.4-10.2); CARBON DIOXIDE 32 mmol/L (21-31); CHLORIDE 98 mmol/L (97-110); CREATININE 4.14 mg/dl (0.61-1.24); GLUCOSE 109 mg/dl (70-220); POTASSIUM 5.2 mmol/L (3.5-5.1); SODIUM 142 mmol/L (135-144); TOTAL PROTEIN 5.9 g/dl (6.1-8.1)
[2018-09-06 05:23] LABS: BLOOD UREA NITROGEN 155 mg/dl (7-20)
[2018-09-06] MEDS: OCULAR LUBRICANT 3.5 GM OPH OINT BOTH EYES ×3 (05:31→17:22)
[2018-09-06] MEDS: BUMETANIDE 1 MG INJ IV ×2 (05:31→12:05)
[2018-09-06] MEDS: ARTIFICIAL TEARS 15 ML OPH BOTH EYES ×3 (05:31→17:22)
[2018-09-06 07:33] LABS: ANISOCYTOSIS 1+ (0-0); BAND NEUTROPHILS #M 1.7 10^3/ul (0.0-0.6); BAND NEUTROPHILS % (M) 10 % (0-4); BASOPHIL #M 0.1 10^3/ul (0.0-0.0); BASOPHILS % (M) 1 % (0-2); EOSINOPHILS % (M) 1 % (0-7); ERYTHROBLAST% (NRBC) (M) 2 % (0-0); GIANT THROMBO% (M) 2 % (0-0); LYMPHOCYTES #M 1.2 10^3/ul (0.8-2.9); LYMPHOCYTES % (M) 7 % (15-51); METAMYELOCYTES #M 0.5 10^3/ul (0.0-0.0); METAMYELOCYTES %M 3 % (0-0); MICROCYTOSIS 1+ (0-0); MONOCYTE #M 1.6 10^3/ul (0.3-0.9); MONOCYTES % (M) 9 % (0-11); MYELOCYTES #M 0.5 10^3/ul (0.0-0.0); MYELOCYTES % (M) 3 % (0-0); PLATELET ESTIMATE NORMAL; POIKILOCYTOSIS 1+ (0-0); POLYCHROMASIA 1+ (0-0); PROMYELOCYTES #M 0.1 10^3/ul (0-0); PROMYELOCYTES % (M) 1 % (0-0); REACTIVE LYMPHOCYTES #M 0.1 10^3/ul (0.0-0.0); REACTIVE LYMPHOCYTES% (M) 1 % (0-0); SEG NEUT #M 11.7 10^3/ul (1.6-7.5); SEGMENTED NEUTROPHILS (M) % 64 % (39-77); SMUDGE%M 4 % (0-0)
[2018-09-06] MEDS: AMIODARONE 200 MG TAB PO ×2 (08:38→21:33)
[2018-09-06] MEDS: LEVETIRACETAM 500 MG (PMX) 100 ML IVPB ×2 (08:38→21:33)
[2018-09-06] MEDS: HEPARIN 5,000 UNIT/1 ML VIAL SC (08:42)
[2018-09-06] MEDS: SODIUM BICARBONATE (IV ADD) 150 MEQ in DEXTROSE 5% 850 ML IV (10:22)
[2018-09-06 10:59] LABS: AADO2 Arterial 79.7 mmHg (7.0-24.0); Allen Test ACCEPTAB; Arterial Base Excess 9.8 mmol/L (-3.0-3); Arterial COHb 0.4 % (0.0-3.0); Arterial Fraction of Oxyhgb 95.4 % (93.0-99.0); Arterial HCO3 33.3 mmol/L (22.0-26.0); Arterial MetHb 0.2 % (0.0-1.5); Arterial pCO2 40.7 mmhg (35-45); MODE VENT - AC; Site Right Radial
[2018-09-06] MEDS: DIGOXIN 500 MCG INJ IV (11:08)
[2018-09-06] MEDS ORDERED: DEXTROSE 50% 50 ML SYRINGE IV ×2 (11:30)
[2018-09-06] MEDS ORDERED: GLUCAGON 1 MG INJ IM (11:30)
[2018-09-06] MEDS ORDERED: GLUCOSE GEL 15 GRAM TUBE BUCCAL (11:30)
[2018-09-06] MEDS ORDERED: GLUCOSE GEL 15 GRAM TUBE PO ×2 (11:30)
[2018-09-06] MEDS: INSULIN ASPART [NOVOLOG] 3 ML PEN SC ×3 (12:00→21:25)
[2018-09-06] MEDS: INSULIN GLARGINE [LANTus] (100 UNITS/ML) SYG SC (12:08)
[2018-09-06] MEDS: NA POLYST SULFON 15 GM/60 ML BTL NGT (13:14)
[2018-09-06] MEDS ORDERED: SOD CHLORIDE 0.45% 1,000 ML IV (16:30)
[2018-09-06] MEDS: SOD CHLORIDE 0.45% 1,000 ML IV (16:48)
[2018-09-06] MEDS: CEFEPIME 1GM/50 ML (PMX) 50 ML IVPB (17:21)
[2018-09-07] MEDS: ARTIFICIAL TEARS 15 ML OPH BOTH EYES ×4 (00:22→17:22)
[2018-09-07] MEDS: OCULAR LUBRICANT 3.5 GM OPH OINT BOTH EYES ×4 (00:22→17:22)
[2018-09-07 00:46] LABS: AHG CROSSMATCH 1 3
[2018-09-07] MEDS ORDERED: ACCUCHECK AT 2AM (Patients on SS coverage) XX (02:00)
[2018-09-07 05:37] LABS: ADD MAN DIFF? NO
[2018-09-07] MEDS: PANTOPRAZOLE (EC) 40 MG TAB PO (05:37)
[2018-09-07 05:38] LABS: ABNORMAL IP MESSAGE 1; BASOPHIL # 0.1 10^3/ul (0.0-0.1); BASOPHILS % 0.4 % (0.0-2.0); EOSINOPHILS # 0.1 10^3/ul (0.0-0.5); EOSINOPHILS % 0.6 % (0.0-7.0); HEMATOCRIT 25.5 % (42.0-52.0); HEMOGLOBIN 8.3 g/dl (14.0-18.0); LYMPHOCYTES # 0.7 10^3/ul (0.8-2.9); LYMPHOCYTES % 3.7 % (15.0-51.0); MEAN CORPUSCULAR HEMOGLOBIN 30.2 pg (29.0-33.0); MEAN CORPUSCULAR HGB CONC 32.5 g/dl (32.0-37.0); MEAN CORPUSCULAR VOLUME 92.7 fl (82.0-101.0); MEAN PLATELET VOLUME 11.1 fl (7.4-10.4); MONOCYTES % 21.1 % (0.0-11.0); NUCLEATED RED BLOOD CELLS% 0.2 /100WBC (0.0-0.0); PLATELET COUNT 194 10^3/UL (140-415); POSITIVE DIFF @See below; RED BLOOD COUNT 2.75 10^6/ul (4.70-6.10); RED CELL DISTRIBUTION WIDTH 17.1 % (11.5-14.5)
[2018-09-07 05:38] LABS: WHITE BLOOD COUNT 18.8 10^3/ul (4.8-10.8)
[2018-09-07] MEDS: INSULIN ASPART [NOVOLOG] 3 ML PEN SC ×5 (05:43→22:29)
[2018-09-07 06:01] LABS: ALANINE AMINOTRANSFERASE 187 IU/L (13-69); ALBUMIN 2.8 g/dl (3.3-4.9); ALBUMIN/GLOBULIN RATIO 1.27; ALKALINE PHOSPHATASE 488 IU/L (42-121); ANION GAP 10 (5-13); ASPARTATE AMINO TRANSFERASE 376 IU/L (15-46); BILIRUBIN,INDIRECT 0.3 mg/dl (0-1.1); BILIRUBIN,TOTAL 0.3 mg/dl (0.2-1.3); CALCIUM 7.7 mg/dl (8.4-10.2); CARBON DIOXIDE 33 mmol/L (21-31); CHLORIDE 99 mmol/L (97-110); CREATININE 3.44 mg/dl (0.61-1.24); GLUCOSE 147 mg/dl (70-220); SODIUM 142 mmol/L (135-144)
[2018-09-07 06:12] LABS: BLOOD UREA NITROGEN 159 mg/dl (7-20)
[2018-09-07] MEDS: LEVETIRACETAM 500 MG (PMX) 100 ML IVPB ×2 (08:35→22:32)
[2018-09-07] MEDS: AMIODARONE 200 MG TAB PO ×2 (08:35→22:32)
[2018-09-07] MEDS: INSULIN GLARGINE [LANTus] (100 UNITS/ML) SYG SC (08:39)
[2018-09-07] MEDS ORDERED: ACETAMINOPHEN 325 MG TAB NGT (11:00)
[2018-09-07] MEDS: ALTEPLASE (CATHFLO) 2 MG INJ CATHETER (12:12)
[2018-09-07] MEDS: ACETAMINOPHEN 650MG/20.3ML CUP NGT (12:12)
[2018-09-07 12:58] LABS: HAAIG REFLEX REFLEX FILED
[2018-09-07 13:38] LABS: HEPATITIS B SURFACE ANTIGEN NEGATIVE (NEGATIVE)
[2018-09-07 13:56] LABS: HEPATITIS B CORE ANTIBODY NEGATIVE (NEGATIVE); HEPATITIS C VIRAL ANTIBODY NEGATIVE (NEGATIVE)
[2018-09-07] MEDS: DEXTROSE 5%-0.45% NACL 1,000 ML IV (15:06)
[2018-09-07] MEDS: CEFEPIME 1GM/50 ML (PMX) 50 ML IVPB (17:21)
[2018-09-07] MEDS: EPOETIN 10000 UNITS/ML (NON ESRD/NON ONCOLOGY) SC (17:22)
[2018-09-08] MEDS: ARTIFICIAL TEARS 15 ML OPH BOTH EYES ×4 (00:53→17:25)
[2018-09-08] MEDS: OCULAR LUBRICANT 3.5 GM OPH OINT BOTH EYES ×4 (00:53→17:26)
[2018-09-08] MEDS: INSULIN ASPART [NOVOLOG] 3 ML PEN SC ×6 (01:07→21:52)
[2018-09-08 05:16] LABS: ADD MAN DIFF? NO
[2018-09-08] MEDS: ACETAMINOPHEN 650MG/20.3ML CUP NGT ×2 (05:23→16:12)
[2018-09-08] MEDS: PANTOPRAZOLE (EC) 40 MG TAB PO (05:23)
[2018-09-08 05:30] LABS: ABNORMAL IP MESSAGE 1; BASOPHILS % 0.2 % (0.0-2.0); EOSINOPHILS # 0.2 10^3/ul (0.0-0.5); EOSINOPHILS % 0.8 % (0.0-7.0); HEMATOCRIT 24.8 % (42.0-52.0); LYMPHOCYTES # 0.7 10^3/ul (0.8-2.9); LYMPHOCYTES % 3.9 % (15.0-51.0); MEAN CORPUSCULAR HEMOGLOBIN 30.1 pg (29.0-33.0); MEAN CORPUSCULAR HGB CONC 32.3 g/dl (32.0-37.0); MEAN CORPUSCULAR VOLUME 93.2 fl (82.0-101.0); MEAN PLATELET VOLUME 11.1 fl (7.4-10.4); MONOCYTES % 21.5 % (0.0-11.0); NEUTROPHILS % 69.6 % (39.0-77.0); NUCLEATED RED BLOOD CELLS% 0.2 /100WBC (0.0-0.0); PLATELET COUNT 205 10^3/UL (140-415); POSITIVE DIFF @See below; RED BLOOD COUNT 2.66 10^6/ul (4.70-6.10); RED CELL DISTRIBUTION WIDTH 17.5 % (11.5-14.5)
[2018-09-08 05:30] LABS: WHITE BLOOD COUNT 18.7 10^3/ul (4.8-10.8)
[2018-09-08 06:16] LABS: ALANINE AMINOTRANSFERASE 154 IU/L (13-69); ALBUMIN 2.7 g/dl (3.3-4.9); ALBUMIN/GLOBULIN RATIO 1.22; ALKALINE PHOSPHATASE 449 IU/L (42-121); ANION GAP 12 (5-13); ASPARTATE AMINO TRANSFERASE 249 IU/L (15-46); BILIRUBIN,INDIRECT 0.3 mg/dl (0-1.1); BILIRUBIN,TOTAL 0.3 mg/dl (0.2-1.3); CALCIUM 7.8 mg/dl (8.4-10.2); CARBON DIOXIDE 31 mmol/L (21-31); CHLORIDE 101 mmol/L (97-110); CREATININE 3.55 mg/dl (0.61-1.24); GLUCOSE 148 mg/dl (70-220); MAGNESIUM 2.5 mg/dl (1.7-2.5); PHOSPHORUS 5.7 mg/dl (2.5-4.9); POTASSIUM 5.2 mmol/L (3.5-5.1); SODIUM 144 mmol/L (135-144); TOTAL PROTEIN 4.9 g/dl (6.1-8.1)
[2018-09-08 06:24] LABS: BLOOD UREA NITROGEN 156 mg/dl (7-20)
[2018-09-08] MEDS: AMIODARONE 200 MG TAB PO ×2 (09:44→21:52)
[2018-09-08] MEDS: LEVETIRACETAM 500 MG (PMX) 100 ML IVPB ×2 (09:44→21:54)
[2018-09-08] MEDS: INSULIN GLARGINE [LANTus] (100 UNITS/ML) SYG SC (09:49)
[2018-09-08] MEDS: DEXTROSE 5%-0.45% NACL 1,000 ML IV (11:33)
[2018-09-08] MEDS: CEFEPIME 1GM/50 ML (PMX) 50 ML IVPB (17:25)
[2018-09-08] MEDS ORDERED: VANCOMYCIN IV PER PHARMACY XX (22:30)
[2018-09-09] MEDS: ARTIFICIAL TEARS 15 ML OPH BOTH EYES ×4 (00:45→17:08)
[2018-09-09] MEDS: OCULAR LUBRICANT 3.5 GM OPH OINT BOTH EYES ×4 (00:45→17:08)
[2018-09-09] MEDS: INSULIN ASPART [NOVOLOG] 3 ML PEN SC ×5 (00:52→17:07)
[2018-09-09] MEDS: VANCOMYCIN HCL 1.25 GM in SOD CHLORIDE 0.9% 250 ML IVPB (02:35)
[2018-09-09 05:20] LABS: ADD MAN DIFF? NO
[2018-09-09 05:34] LABS: WHITE BLOOD COUNT 16.9 10^3/ul (4.8-10.8)
[2018-09-09 05:34] LABS: ABNORMAL IP MESSAGE 1; BASOPHIL # 0.1 10^3/ul (0.0-0.1); BASOPHILS % 0.4 % (0.0-2.0); EOSINOPHILS # 0.2 10^3/ul (0.0-0.5); HEMATOCRIT 24.8 % (42.0-52.0); HEMOGLOBIN 7.8 g/dl (14.0-18.0); LYMPHOCYTES # 0.5 10^3/ul (0.8-2.9); LYMPHOCYTES % 2.7 % (15.0-51.0); MEAN CORPUSCULAR HEMOGLOBIN 30.1 pg (29.0-33.0); MEAN CORPUSCULAR HGB CONC 31.5 g/dl (32.0-37.0); MEAN CORPUSCULAR VOLUME 95.8 fl (82.0-101.0); MEAN PLATELET VOLUME 11.4 fl (7.4-10.4); MONOCYTE # 2.8 10^3/ul (0.3-0.9); MONOCYTES % 16.5 % (0.0-11.0); NEUTROPHIL # 12.8 10^3/ul (1.6-7.5); NEUTROPHILS % 75.4 % (39.0-77.0); NUCLEATED RED BLOOD CELLS% 0.1 /100WBC (0.0-0.0); PLATELET COUNT 194 10^3/UL (140-415); POSITIVE DIFF @See below; RED BLOOD COUNT 2.59 10^6/ul (4.70-6.10); RED CELL DISTRIBUTION WIDTH 17.6 % (11.5-14.5)
[2018-09-09 05:55] LABS: ALANINE AMINOTRANSFERASE 144 IU/L (13-69); ALBUMIN 2.9 g/dl (3.3-4.9); ALBUMIN/GLOBULIN RATIO 0.96; ALKALINE PHOSPHATASE 450 IU/L (42-121); ANION GAP 14 (5-13); ASPARTATE AMINO TRANSFERASE 212 IU/L (15-46); BILIRUBIN,INDIRECT 0.4 mg/dl (0-1.1); BILIRUBIN,TOTAL 0.5 mg/dl (0.2-1.3); CALCIUM 7.9 mg/dl (8.4-10.2); CARBON DIOXIDE 30 mmol/L (21-31); CHLORIDE 98 mmol/L (97-110); CREATININE 4.04 mg/dl (0.61-1.24); GLUCOSE 157 mg/dl (70-220); POTASSIUM 4.6 mmol/L (3.5-5.1); SODIUM 142 mmol/L (135-144); TOTAL PROTEIN 5.9 g/dl (6.1-8.1)
[2018-09-09] MEDS: PANTOPRAZOLE 40 MG INJ IV (06:13)
[2018-09-09 06:17] LABS: BLOOD UREA NITROGEN 155 mg/dl (7-20)
[2018-09-09] MEDS: DEXTROSE 5%-0.45% NACL 1,000 ML IV ×2 (07:00→10:22)
[2018-09-09] MEDS: AMIODARONE 200 MG TAB PO (08:07)
[2018-09-09] MEDS: LEVETIRACETAM 500 MG (PMX) 100 ML IVPB (08:07)
[2018-09-09] MEDS: INSULIN GLARGINE [LANTus] (100 UNITS/ML) SYG SC (08:08)
[2018-09-09] MEDS: CEFEPIME 1GM/50 ML (PMX) 50 ML IVPB (17:30)
[2018-09-09] MEDS: morphine (DRIP) 100 MG/100 ML 100 ML IV (20:01)
== END 2018-09-09 20:37 | disposition expired | DRG 870 ==
LOC: E/R 15:42 → ICU 19:11
PROC: 02HV33Z Insertion of Infusion Device into Superior Vena Cava, Percutaneous Approach (ICD-10-PCS; principal; 2018-08-27)
PROC: 5A1955Z Respiratory Ventilation, Greater than 96 Consecutive Hours (ICD-10-PCS; 2018-08-27)
PROC: 0W9930Z Drainage of Right Pleural Cavity with Drainage Device, Percutaneous Approach (ICD-10-PCS; 2018-08-27)
PROC: 30233N1 Transfusion of Nonautologous Red Blood Cells into Peripheral Vein, Percutaneous Approach (ICD-10-PCS; 2018-08-29)
DX: A41.9 Sepsis, unspecified organism (principal); J69.0 Pneumonitis due to inhalation of food and vomit; J96.00 Acute respiratory failure, unspecified whether with hypoxia or hypercapnia; R40.20 Unspecified coma; J15.6 Pneumonia due to other Gram-negative bacteria; S22.43XA Multiple fractures of ribs, bilateral, initial encounter for closed fracture; E87.2 Acidosis; I31.2 Hemopericardium, not elsewhere classified; J90 Pleural effusion, not elsewhere classified; G93.1 Anoxic brain damage, not elsewhere classified; I42.9 Cardiomyopathy, unspecified; N17.9 Acute kidney failure, unspecified; R65.20 Severe sepsis without septic shock; X58.XXXA Exposure to other specified factors, initial encounter; E87.5 Hyperkalemia; Z66 Do not resuscitate; I10 Essential (primary) hypertension; M81.0 Age-related osteoporosis without current pathological fracture; M15.9 Polyosteoarthritis, unspecified; S27.0XXA Traumatic pneumothorax, initial encounter; N40.0 Benign prostatic hyperplasia without lower urinary tract symptoms; I27.20 Pulmonary hypertension, unspecified; I46.9 Cardiac arrest, cause unspecified; R56.9 Unspecified convulsions; E11.9 Type 2 diabetes mellitus without complications; I25.10 Atherosclerotic heart disease of native coronary artery without angina pectoris; K74.60 Unspecified cirrhosis of liver; D53.9 Nutritional anemia, unspecified; D69.6 Thrombocytopenia, unspecified; I48.2 Chronic atrial fibrillation; Y92.018 Other place in single-family (private) house as the place of occurrence of the external cause; Z79.01 Long term (current) use of anticoagulants; E87.70 Fluid overload, unspecified
CPT/HCPCS: 36415; 36430; 36600; 70450; 71045; 71275; 76705; 76775; 78606; 80048; 80053; 80162; 81001; 81003; 82140; 82150; 82270; 82330; 82378; 82550; 82553; 82570; 82607; 82668; 82728; 82746; 82803; 82962; 83540; 83605; 83615; 83690; 83735; 83880; 84100; 84153; 84154; 84155; 84165; 84300; 84443; 84484; 84560; 85025; 85045; 85049; 85378; 85384; 85610; 85670; 85730; 86022; 86704; 86709; 86803; 86850; 86870; 86900; 86901; 86920; 87040; 87070; 87075; 87081; 87086; 87340; 87400; 89220; 93005; 93306; 94002; 94003; 94640; 94770; 95819; 99291-25